=== PATIENT | male | born 1940 | race Caucasian/White ===

== ENCOUNTER 2018-03-05 00:51 | Observation (INO) | payer OTHER, MEDICARE ==
[~2018-03-05] VITALS: Ht 180.3 cm; Wt 81.6 kg
[2018-03-05] VITALS (8 sets, daily range): BP systolic 117–170; BP diastolic 54–78
[~2018-03-05 00:51] MED LIST: ALPRAZOLAM 0.0.25 M1 PO; AMITIZA8 MCG PO; AMLODIPINE BESY10 MG PO; AMOXICILLIN 50500 M1 PO; ASPIR 8181 M1 PO; ASPIRIN325 PO; CARVEDILOL25 MG PO; CHERATUSSIN DA480 ML; CRESTOR10 MG PO; DEXILANT60 MG PO; HYDRALAZINE 2525 MG PO; HYDRAZINE SULFAT1 GM MC; HYDROCHLOROTHIA25 M2 PO; IMDUR 30 MG TAB30 M1 PO; LEVEMIR SQ; LIPITOR 20 MG T20 M1 PO; MAXZIDE-25 MG1 EACH PO; NITROGLYCERIN0.4 MG SL; NOVOLOG100 UNIT/1 SUBQ; PLAVIX 75 MG TA75 M1 PO; PREDNISONE 20 M20 M1 PO; RANEXA500 MG PO; TYLENOL325 MG PO; VENTOLIN HFA 1818 GM INH; XANAX 0.25 MG0.25 MG PO; ZPAK PO
[2018-03-05 01:23] LABS: HEMATOCRIT 34.8 % (42.0-52.0); HEMOGLOBIN 11.8 gm/dL (14.0-18.0); MCH 27.2 pg (26.0-34.0); MCHC 33.8 g/dL (28.0-37.0); MCV 80.5 fL (80.0-100.0); MPV 8.1 fl. (7.2-11.1); NUCLEATED RBCS 0 /100WBC; PLATELET COUNT* 128 thou/uL (150-400); RBC 4.32 mil/uL (4.50-6.00); RDW-CV 16.1 % (10.5-14.5)
[2018-03-05 01:37] LABS: INR 1.1
[2018-03-05 01:38] LABS: ANION GAP 1 mmol/L (7-16); BUN 29 mg/dL (7-18); CALCIUM 8.2 mg/dL (8.5-10.1); CHLORIDE 101 mmol/L (98-107); CO2 34 mmol/L (21-32); CREATININE 1.9 mg/dL (0.6-1.3); GLUCOSE 117 mg/dL (70-99); POTASSIUM 4.2 mmol/L (3.5-5.1); SODIUM 136 mmol/L (136-145)
[2018-03-05 01:55] LABS: ALBUMIN 3.3 g/dL (3.4-5.0); ALKALINE PHOSPHATASE 74 U/L (46-116); LIPASE 152 U/L (73-393); NT-PRO BRAIN NAT PEPTIDE 1169 pg/mL (<300); SGOT 21 U/L (15-37); SGPT 29 U/L (30-65); TOTAL BILIRUBIN 0.7 mg/dL (<0.1-1.0); TOTAL PROTEIN 6.5 g/dL (6.4-8.2); TROPONIN-I LEVEL <0.06 ng/mL (<0.06)
[2018-03-05] MEDS ORDERED: LORATIDINE 10 M10 M1 PO (05:30)
[2018-03-05 05:39] LABS: ABSOLUTE EOSINOPHILS 0.2 thou/uL (0.0-0.7); ABSOLUTE LYMPHOCYTES 0.9 thou/uL (0.8-5.3); ABSOLUTE MONOCYTES 0.1 thou/uL (0.0-1.2); ABSOLUTE NEUTROPHILS 5.7 thou/uL (1.6-8.1); ANISOCYTOSIS 1+; PLATELET ESTIMATE DECREASED; POIKILOCYTOSIS 1+
--- NOTE | 2018-03-05 06:06 | NUR ---
PT ADMITTED TO ROOM 219 DURING THIS SHIFT; VSS, A+OX4, DENIES PAIN, FALL RISK, UP SBA, NPO FOR CARDIOLOGY CONSULT THIS MORNING. HE IS ABLE TO COMMUNICATE HIS NEEDS TO STAFF EFFECTIVELY. HE HAS DENIED THE NEED FOR PAIN MEDICATION UP TO THIS TIME. PT CONCERNED ABOUT LOW BLOOD SUGAR; HE WILL BE ACHS ACCUCHECKS BEGINNING THIS MORNING.
--- NOTE | 2018-03-05 07:30 | NUR ---
CHANGE OF SHIFT BEDSIDE REPORT GVEN PATIENT SEEN AT BEDSIDE, IN BED WATCHING TV ASSUMED PATIENT CARE
--- NOTE | 2018-03-05 10:58 | EKG ---
[place] [address] ELECTROCARDIOGRAM REPORT Name: TAMELA RAMOS Room: [address] ADM IN [facility]#: [id number] Admission: 03/05/18 Attend Phys: Bk Gamez MD Discharge: Date of : 38 Report #: [id number] THIS REPORT FOR: //name// [facility] ED Test Date: 2018-03-05 Test Time: 01:24:00 Pat Name: TAMELA RAMOS Department: Room: [facility] Gender: M Projection Technician: AP : 1940 Requested By: Uma Rodríguez Order Number: [id number] MD: Cassius Omer Measurements Intervals [place] Rate: 63 P: 73 [place]: 189 QRS: -57 QRSD: 160 T: 47 QT: 478 QTc: 490 Interpretive Statements Sinus rhythm Probable left atrial enlargement RBBB and LAFB Compared to ECG 03/30/2017 16:22:15 No significant changes Electronically Signed On 03-05-2018 10:58:04 CDT by Cassius Omer [email or web address] <ELECTRONICALLY SIGNED> By: Cassius Omer MD, [facility] 03/05/18 1058 0124 0124 Cassius Omer MD, [facility] /EPI
--- NOTE | 2018-03-05 14:11 | NUR ---
Pt is A&O. Resides at home with his son. Normally active and independent. No hx of HH. Hx of skilled at [facility]. Pt has a walker and cane at home that he can use, if needed, Pt does not currently use either. Pt's goal is to return home at wa, Pt states that he anticipates being discharged tomorrow. No needs anticipated. Following.
[2018-03-06] VITALS: BP 134/59
[2018-03-06 04:00] VITALS: BP 168/75
--- NOTE | 2018-03-06 06:15 | NUR ---
PT IS ABLE TO COMMUNICATE HIS NEEDS TO STAFF EFFECTIVELY. CURRENT PAIN MEDICATION REGIMEN HAS BEEN ADDEQUATE FOR CONTROLLING HIS PAIN UP TO THIS TIME. PT'S BLOOD SUGAR INITIALLY HIGH AT HS, BECAME LOW IN THE WATER SERVER AND THEN REBOUNDED TO A BETTER LEVEL AT THIS TIME. POSSIBLE DISCHARGE LATER TODAY.
--- NOTE | 2018-03-06 07:15 | NUR ---
CHANGE OF SHIFT BEDSIDE REPORT GIVEN PATIENT SEEN AT BEDSIDE, IN BED RESTING ASSUMED PATIENT CARE
[2018-03-06 08:27] VITALS: BP 117/76
[2018-03-06 12:28] VITALS: BP 170/63
--- NOTE | 2018-03-06 12:31 | NUR ---
DISTRIBUTION ESTIMATOR SPOKE TO THE PATIENT TO DISCUSS DISCHARGE PLANNING NEED AND HH AT D/C. PATIENT IN AGREEMENT WITH HH AND CHOSE [facility]. SPOKE TO DC WITH [facility] TO INFORM OF THE REFERRAL AND FAXED PATIENT'S FACESHEET, H&P, AND D/C ORDERS. CM WILL REMAIN AVAILABLE TO ASSIST AND FOLLOW NEEDED.
--- NOTE | 2018-03-06 14:14 | NUR ---
PATIENT DISCHARGED TO HOME WITH H/H ALL DC INSTRUCTIONS GIVEN AND ACKNOWLEDGED AND COPIES GIVEN IV AND HEART MONITOR REMOVED PERSONAL BELONGINGS RETURNED ASSISTED OUT VIA WC GOOD CONDITION TO WAITING CAR
--- NOTE | 2018-03-07 10:11 | CON ---
[facility] [address] [place] [address] CONSULTATION Name: RICHARDTAMELA Room: [address] [place]#: [id number] Admission: 03/05/18 Attend Phys: Bk Gamez MD Discharge: 03/06/18 Date of : 38 Report #: [id number] THIS REPORT FOR: //name// CC: Bk Trent MD [facility] physician/PCP DATE OF SERVICE: 03/05/2018 TYPE OF REPORT: Cardiology consultation. PRIMARY CARE PHYSICIAN: Daljit Trent M.D. HISTORY OF THE PRESENT ILLNESS: The patient is a 77-year-old single white male who I was asked to see in the hospital today after he had a syncopal spell. The patient has an extensive past medical history. He had coronary artery bypass surgery with 5 grafts back in 1996 at [facility]. He has had multiple stents since that time. I actually performed a cardiac catheterization in September of 2016 that showed ejection fraction of 55%. There is a patent MORENO graft to the LAD. There is a patent vein graft to the distal right coronary artery that had a proximal stent as well as a stent at the distal anastomosis. There appeared to have no significant restenosis. No additional stents were required. I last saw him in the Cardiology Clinic a year ago. He actually saw my nurse practitioner in September when he was doing well. He stays active, going for walks. Denies any chest pain or shortness of breath. He does note occasionally after taking his medications he feels lightheaded. However, he was feeling well until last night. He felt lightheaded when he stood up. He went to the kitchen and sat down. He then felt nausea. The room was spinning and he fell and struck his nose. He was brought here to the Emergency Room at [place] and admitted. He denied racing of the heart. Denies recent vomiting or bleeding. PAST MEDICAL HISTORY: Significant for appendectomy and cataract extraction. He has a history of diabetes, hypertension and hyperlipidemia. He has a history of a carotid stenosis of 50%-69% stenosis of the right a year ago. He has a history of a small abdominal aortic aneurysm measuring 3.8 cm. MEDICATIONS: Consist of amlodipine, which was decreased to 5 mg a day because of dizzy spells; aspirin; Lipitor; carvedilol; Plavix; hydralazine; insulin; Ranexa and Dyazide. ALLERGIES: No known drug allergies. FAMILY HISTORY: His father had a heart attack. SOCIAL HISTORY: He is . He lives here in [place] [address] CONSULTATION Name: TAMELA RAMOS Room: [address] [place]#: [id number] Admission: 03/05/18 Attend Phys: Bk Gamez MD Discharge: 03/06/18 Date of : 38 Report #: [id number]. Quit smoking years ago. No alcohol abuse. REVIEW OF SYSTEMS: He has had no history of stroke, asthma, peptic ulcer disease, liver disease or kidney disease. He had a skin cancer removed in the past. PHYSICAL EXAMINATION: GENERAL: Revealed an elderly male, lying in bed. He appeared in no distress. VITAL SIGNS: Blood pressure 120/60, pulse 70 and he is afebrile. HEENT: He is anicteric. Conjunctivae pink. Mucous members moist. NECK: Veins nondistended. Bilateral carotid bruits were heard. CHEST: Clear to auscultation. CARDIOVASCULAR: Regular rate and rhythm, grade 2 systolic ejection murmur. ABDOMEN: Soft. EXTREMITIES: Had no edema. Posterior tibial pulse 2+ in the right, cannot palpate a left. SKIN: Cool and dry. NEUROLOGICAL: Nonfocal. RADIOLOGICAL DATA: His ECG showed a sinus rhythm with left anterior fascicular block and right bundle-branch block. His previous echocardiogram in 2016 showed mild aortic stenosis. Workup in the Emergency Room last night, he had CT scan of the head without contrast that showed atrophy. Chest x-ray showed no acute abnormality. LABORATORY DATA: His lab work: Sodium 136, potassium is 4.2 and creatinine is 1.9. Liver function studies were normal. His white blood cell count 7.0 and hematocrit 34.8. IMPRESSION AND RECOMMENDATIONS: 1. Syncope. Suspect vasovagal. If recurrent, I would consider an event recorder. 2. Diabetes. 3. Small abdominal aortic aneurysm. 4. Moderate carotid stenosis. 5. Previous stents. No recent angina. 6. Hypertension. I would recommend decreasing the dose because of lightheaded spells. 7. Hyperlipidemia. 8. Mild aortic stenosis. 9. Previous tobacco abuse. <ELECTRONICALLY SIGNED> By: Cassius Omer MD, FACC 03/07/18 1011 0935 1033Djamar Omer MD, FACC /nt
== END 2018-03-06 14:04 | disposition home health service (06) ==
LOC: M.ERS 00:51 → M.TBA-ER 03:07 → M.2W 03:07
PROVIDERS: Emergency Medicine; ADMIT Internal Medicine
DX: S02.2XXA Fracture of nasal bones, initial encounter for closed fracture (principal); R11.2 Nausea with vomiting, unspecified; R55 Syncope and collapse; I95.2 Hypotension due to drugs; E11.9 Type 2 diabetes mellitus without complications; I10 Essential (primary) hypertension; K21.9 Gastro-esophageal reflux disease without esophagitis; E78.5 Hyperlipidemia, unspecified; I65.29 Occlusion and stenosis of unspecified carotid artery; I71.4 Abdominal aortic aneurysm, without rupture; I35.0 Nonrheumatic aortic (valve) stenosis; W18.30XA Fall on same level, unspecified, initial encounter; Y93.89 Activity, other specified; Y92.000 Kitchen of unspecified non-institutional (private) residence as the place of occurrence of the external cause; Y99.8 Other external cause status; Z98.890 Other specified postprocedural states; Z79.4 Long term (current) use of insulin; Z95.5 Presence of coronary angioplasty implant and graft; Z90.49 Acquired absence of other specified parts of digestive tract; Z87.891 Personal history of nicotine dependence; Z72.89 Other problems related to lifestyle

== ENCOUNTER → 2018-08-15 | Outpatient (CLI) | payer OTHER, MEDICARE ==
[~2018-08-15] MED LIST changes: +ASPIR 8181 MG PO; +K-DUR10 MEQ PO; +LASIX 20 MG TAB20 MG PO; +LORATIDINE 10 M10 M1 PO
== END ==
LOC: M.RAD 11:09
DX: J90 Pleural effusion, not elsewhere classified (principal); R91.8 Other nonspecific abnormal finding of lung field

== ENCOUNTER 2018-08-16 13:14 | Inpatient (IN) | payer MEDICARE, OTHER ==
[~2018-08-16] VITALS: Ht 177.8 cm; Wt 76.2 kg
[~2018-08-16 13:14] MED LIST changes: -ASPIR 8181 MG PO; -CARVEDILOL25 MG PO; -K-DUR10 MEQ PO; -LASIX 20 MG TAB20 MG PO
[2018-08-16 13:19] VITALS: BP 134/81
[2018-08-16] MEDS ORDERED: LASIX 20 MG TAB20 MG PO ×2 (13:23)
[2018-08-16 13:47] LABS: ABSOLUTE EOSINOPHILS 0.1 thou/uL (0.0-0.7); ABSOLUTE LYMPHOCYTES 0.3 thou/uL (0.8-5.3); ABSOLUTE MONOCYTES 0.3 thou/uL (0.0-1.2); ABSOLUTE NEUTROPHILS 2.1 thou/uL (1.6-8.1); BASOPHILS 0.8 %; EOSINOPHILS 3.1 %; HEMATOCRIT 32.8 % (42.0-52.0); HEMOGLOBIN 10.8 gm/dL (14.0-18.0); MCH 25.3 pg (26.0-34.0); MCV 76.7 fL (80.0-100.0); MONOCYTES 10.6 %; MPV 8.9 fl. (7.2-11.1); NUCLEATED RBCS 0 /100WBC; PLATELET COUNT* 114 thou/uL (150-400); POLYS 73.5 %; RBC 4.27 mil/uL (4.50-6.00); RDW-CV 18.6 % (10.5-14.5); WBC 2.8 thou/uL (4.0-11.0)
[2018-08-16 14:00] LABS: APTT 29.7 Seconds (25.0-31.3); INR 1.1; PROTIME 11.4 Seconds (9.20-11.50)
[2018-08-16 14:07] LABS: CALCIUM 8.7 mg/dL (8.5-10.1); CREATININE 1.8 mg/dL (0.6-1.3); POTASSIUM 4.4 mmol/L (3.5-5.1); TROPONIN-I LEVEL 0.12 ng/mL (<0.06)
[2018-08-16 14:10] LABS: ALBUMIN 3.3 g/dL (3.4-5.0); TOTAL BILIRUBIN 0.9 mg/dL (<0.1-1.0); TOTAL PROTEIN 6.7 g/dL (6.4-8.2)
--- NOTE | 2018-08-16 15:01 | EKG ---
[place] [address] ELECTROCARDIOGRAM REPORT Name: TAMELA RAMOS Room: [place] [address] ADM IN [facility].#: [id number] Admission: 08/16/18 Attend Phys: Samy Roy Discharge: Date of : 38 Report #: [id number] THIS REPORT FOR: //name// [facility] ED Test Date: 2018-08-16 Test Time: 13:16:07 Pat Name: TAMELA RAMOS Department: Room: [facility] Gender: Bookmobile Clerk: Wilberto WYATT : 1940 Requested By: Rios Livingston Order Number: [id number] MD: Kalen Becerra Measurements Intervals [place] Rate: 79 P: 67 SD: 201 QRS: -63 QRSD: 157 T: 85 QT: 431 QTc: 495 Interpretive Statements Sinus rhythm 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
[2018-08-16 15:46] LABS: CALCIUM 8.7 mg/dL (8.5-10.1); CREATININE 1.7 mg/dL (0.6-1.3); POTASSIUM 4.4 mmol/L (3.5-5.1); TROPONIN-I LEVEL 0.2 ng/mL (<0.06)
[2018-08-16 18:55] VITALS: BP 134/48
[2018-08-16 20:00] VITALS: BP 146/87
--- NOTE | 2018-08-16 20:00 | NUR ---
RECEIVED REPORT AND ADMITTED FROM ER AT 1940. PT SOA, O2 ON AT 2L/NC, HOB ELEVATED. STATES CHEST PRESSURE STILL THERE. [employer] SERVICES COORDINATOR APPLIED SHOWING SR WITH 1ST AVB AND BBB. PT BELCHING AND STATES THAT IS HELPING. WILL GIVE HS MEDS WHICH INCLUDE CARDIAC MEDS. FAMILY AT BEDSIDE. SEE ADMISSION ASSESSMENT AND HX. WILL CONT TO MONITOR AND ASSIST NEEDED.
[2018-08-17] VITALS (20 sets, daily range): BP systolic 94–168; BP diastolic 50–96
[2018-08-17 02:42] LABS: CALCIUM 8.5 mg/dL (8.5-10.1); CREATININE 1.8 mg/dL (0.6-1.3)
[2018-08-17 02:43] LABS: POTASSIUM 3.4 mmol/L (3.5-5.1)
[2018-08-17 02:44] LABS: TROPONIN-I LEVEL 1.15 ng/mL (<0.06)
--- NOTE | 2018-08-17 06:16 | NUR ---
SLEPT WELL TONIGHT. CHEST PAIN RESOLVED. TROP ELEVATED. NPO FOR POSS PROCEDURE. TELEMETRY CONT TO SHOW SR WITH 1ST AVB/BBB/PVC. O2 ON AT 2L/NC. NO INCREASED SOA, HOB ELEVATED. LASIX GIVEN EARLIER, VOIDING WITHOUT DIFFICULTY. HS GOALS OF REST AND SAFETY ACHIEVED. HOURLY ROUNDING OBSERVED.
--- NOTE | 2018-08-17 09:39 | NUR ---
ASSUMED CARE OF PT THIS AM AROUND 0715- WARP CLAMPER IN PLACE ORDERED, TRACING SR WITH BBB- UPON ASSESSMENT PT NOTED TO BE RESTING IN BED- PT A&O X4- CONTINENT OF BOWEL AND BLADDER- SBA WITH TRANSFERS FOR SAFETY- DIMINISHED LUNGS SOUNDS NOTED, RESP EVEN AND UN-LABORED- VSS, O2 SAT 97% ON RA- ABD AOFT/ROUND/NON-TENDER, BS X 4 QUADS- PT REPORTS TO HAVE HAD BM THIS AM- PT CURRENLTY NPO FOR PLANNED CATH THIS SHIFT PER CARDIOLOGY- IV NOTED TO LEFT FA INTACT, HEPARIN INFUSSING PRESCRIBED MORNING APPT NOTED AT 70.9 WITH NO CHANGE NEEDED NEXT REDRAW IN AM- 2ND IV NOTED TO RIGHT AC INTACT, IVF INFUSSING PRESCIBED, AND 3RD IV NOTED TO LEFT HAND INTACT AND SL- BS MONITORED ORDERED, INSULIN HELD THIS AM R/T NPO STATUS- PT CURRNELTY UP TO BED SIDE CHAIR- CALL LIGHT AND PERSONAL BELONGINGS WITH IN REACH- PT DENIES ANY C/O PAIN/DISCOMFORT AT THIS TIME- HOURLY ROUNDS IN PLACE R/T SAFETY/NEEDS- ALL NEEDS MET AT THIS TIME-WCTM
--- NOTE | 2018-08-17 14:10 | NUR ---
Pt is A&O. Resides at home with his son. Independent. Pt has a walker and cane at home that he can use for mobility. Hx of [facility] HH. H[facility] of [facility] at [facility]. Pt scheduled to have a heart cath today. Goal is home at tx. If Pt wants HH at tx, fax HH orders, H&P and facesheet to [facility] at [phone]
--- NOTE | 2018-08-17 17:09 | NUR ---
PT OFF UNIT FROM AROUND 1515 TILL 1645 FOR CATH- REPORT RECIECIED PER LIOR RN THAT PT RECIEVIED STENT TO RIGHT VEIN GRAFT VIA RIGHT GROIN ACCESS- PT PLACED ON CARDIAC CATH, TRACING SR/BBB UPON RETURNING- BED REST WITH RLE IMMOBILIZATION IN PLACE-VS PER PROTOCOL IN PLACE WITH FREQUENT GROIN CHECKS- RIGHT GROIN WITH TRANSPARENT/GAUZE DRESSING IN PLACE, C/D/I WITH NO HEMATOMA NOTED-HEPARIN NOTED TO BE D/C'D POST CATH- IVF TO RIGHT AC INTACT AND INFUSSING PRESCIBED- PT DENIES ANY C/O PAIN- SENSATION TO RLE INTACT PER PT- CALL LIGHT AND PERSONAL BELONGINGS WITH IN REACH- PT MAKES NEEDS KNOWN- ALL NEEDS MET AT THIS TIME-WCTM
--- NOTE | 2018-08-17 20:00 | NUR ---
RECEIVED REPORT AND ASSUMED CARE OF PT, ASSESSMENT COMPLETED. PT REMAINS FLAT WITH RT LEG IMMOBILIZATION. RT GROIN DRSG DRY AND INTACT, NO HEMATOMA, DRAINAGE OR ECCHYMOSIS. PT DOES C/O NOT FEELING LIKE HE CAN TAKE A DEEP BREATH, O2 ON AT 2L/NC. TELEMETRY ON SHOWING SR WITH 1ST AVB AND BBB. SON AT BEDSIDE. WILL CONT TO MONITOR AND ASSIST NEEDED.
[2018-08-18 00:15] VITALS: BP 119/56
[2018-08-18 04:00] VITALS: BP 125/62
[2018-08-18 05:13] LABS: HEMATOCRIT 29.1 % (42.0-52.0); HEMOGLOBIN 9.6 gm/dL (14.0-18.0); MCH 25.2 pg (26.0-34.0); MCHC 33.1 g/dL (28.0-37.0); MCV 76.2 fL (80.0-100.0); MPV 9.1 fl. (7.2-11.1); RBC 3.81 mil/uL (4.50-6.00); RDW-CV 18.1 % (10.5-14.5); WBC 3.5 thou/uL (4.0-11.0)
[2018-08-18 05:37] LABS: ALBUMIN 2.8 g/dL (3.4-5.0); ALKALINE PHOSPHATASE 60 U/L (46-116); ANION GAP 4 mmol/L (7-16); BUN 28 mg/dL (7-18); CALCIUM 8.4 mg/dL (8.5-10.1); CHLORIDE 101 mmol/L (98-107); CHOLESTEROL 111 mg/dL (<200); CO2 30 mmol/L (21-32); CREATININE 1.7 mg/dL (0.6-1.3); GLUCOSE 155 mg/dL (70-99); HDL CHOLESTEROL 32 mg/dL (>40); LDL CHOLESTEROL 62 mg/dL (<100); POTASSIUM 3.7 mmol/L (3.5-5.1); SGOT 28 U/L (15-37); SGPT 37 U/L (30-65); SODIUM 135 mmol/L (136-145); TC:HDL 3.5 Ratio (Not establshd); TOTAL BILIRUBIN 1.1 mg/dL (<0.1-1.0); TRIGLYCERIDE 86 mg/dL (<150); VLDL 17 mg/dL (<40)
[2018-08-18 05:39] LABS: SERUM ASSESSMENT CLEAR
[2018-08-18 05:40] LABS: TROPONIN-I LEVEL 1.59 ng/mL (<0.06)
--- NOTE | 2018-08-18 06:49 | NUR ---
SLEPT WELL TONIGHT. RT GROIN REMAINS WITHOUT HEMATOMA, DRAINAGE OR ECCHYMOSIS. BREATHING IMPROVED, O2 REMOVED, O2 SAT REMAINS AT 99%. DENIES CP. ASSESSMENT UNCHANGED. TELEMETRY CONT TO SHOW SR WITH 1ST AVB AND BBB. HS GOALS OF REST AND SAFETY ACHIEVED. HOURLY ROUNDING OBSERVED.
[2018-08-18 07:53] VITALS: BP 132/62
--- NOTE | 2018-08-18 09:35 | NUR ---
ASSUMED CARE OF PT THIS AM AROUND 0715- JOURNEYMAN LINEMAN IN PLACE ORDERED, TRACING SR WITH 1ST DEGREE/BBB- UPON ASSESSMENT PT NOTED TO BE UP IN BED SIDE CHAIR- PT A&O X4- CONTINENT OF BOWEL AND BLADDER- SBA WITH TRANSFERS FOR SAFETY- DIMINISHED LUNG SOUNDS, RESP EVEN AND UN-LABORED- VSS, O2 SAT 98% ON RA- PT REPORTS OCCASSIONAL SOA WITH REPORTS OF ANXIETY- ABD SOFT/FLAT/NON-TENDER, BS X4 QUADS- PT REPORTS TO HAVE HAD BM THIS AM-GOOD PO INTAKE NOTED THIS AM WITH BREAKFAST, BS MONITORED WITH SSI AND SCHEDULED INSULIN PRESCIBED- IV NOTED TO RIGHT AC, LEFT FA AND LEFT WRIST INTACT AND SL- RIGHT GROIN SIGHT WITH NO HEMATOMA, DRESSING C/D/I- PT DENIES ANY C/O PAIN/DISCOMFORT AT THIS TIME- CALL LIGHT AND PERSONAL BELONGINGS WITH N REACH- HOURLY ROUNDS IN PLACE R/T SAFETY/NEEDS- ALL NEEDS MET AT THIS TIME-WCTM
[2018-08-18 10:19] VITALS: BP 144/96
[2018-08-18] MEDS ORDERED: ASPIR 8181 MG PO ×2 (10:53)
--- NOTE | 2018-08-18 11:19 | NUR ---
ORDERS RECIEVIED FOR OKAY TO D/C TO HOME PER AND CARDIOLOGY THIS SHIFT- PLAVIX TO RESTART AT HOME WITH 300MG LOADING DOSE GIVEN ORDERED PER CARDIOLOGY PRIOR TO D/C- IV TO RIGHT AC, LEFT FA, AND LEFT WRIST D/C PRIOR TO D/C ALONG WITH FORESTRY INSTRUCTOR- D/C TEACHING/EDUCATION/NEEDED FOLLOW UPS COMMUNICATED TO PT WITH VERBAL UNDERSTANDING RECIEVIED PER PT PRIOR TO D/C- ALL QUESTIONS AND CONCERNS ADDRESSED PRIOR TO D/C- WRITTEN EDUCATION GIVEN TO PT AND SON PRIOR TO D/C- BELONGINGS PACKED AND ACCOUNTED FOR PER PT SON AND TAKEN TO CAR PRIOR TO D/C- PT ESCORTED PER TECH VIA W/C TO SON VEHICLE AT 1122- NO PROBLEMS TO NOTE AT TIME OF D/C
--- NOTE | 2018-08-18 13:07 | CARD ---
[address] [address] CARDIAC CATH REPORT Name: TAMELA RAMOS Room: [address] IN [facility]#: [id number] Admission: 08/16/18 Attend Phys: Samy Roy Discharge: 08/18/18 Date of : 38 Report #: [id number] THIS REPORT FOR: //name// APPROVED REPORT Study performed: 08/17/2018 14:13:34 Patient Details Patient Status: In-Patient Room #: 205 The patient is a 78 year-old male Event Personnel Annemarie Castle RN Boat Rental Clerk, Brian Herbert Gear Tester, Mariah Rosa Monitor, Marv Kelly (R) Scrub Procedures Performed Art Access - R femoral artery* , Selective Right and Left Coronary AngiographyLeft Heart Cath w/or w/o Coronaries [id number] [facility] TOÑA Revasc Graft Single RCA C9604 SVGREVSING , MORENO Angiogram; left heart catheterization selective coronary arteriography and percutaneous coronary intervention to the distal vein graft the right coronary artery, SVG Angiogram Indication Unstable angina Risk Factors Hypercholesterolemia, Hypertension Previous Procedures/Diagnoses Previous CABGPrevious PCI Admission/Lab Medications/Medications given during procedure Aspirin, Platelet Aff. Inhib., Angiomax bolus and infusion Procedure Narrative The patient was brought electively to the Cardiac Catheterization Laboratory and was prepped and draped in a sterile manner. The right femoral was infiltrated with 2% Lidocaine subcutaneous anesthesia. A [place] 6 FR sheath was inserted into the right femoral artery. Coronary angiography was performed using coronary diagnostic catheters. The right coronary system was accessed and visualized with a 6fr JR 4 catheter. The left coronary system was accessed and visualized with a 6fr JL 4 catheter. The left ventricle was accessed and visualized with a 6fr Pigtail catheter. Left ventricular/[place] [address] CARDIAC CATH REPORT Name: TAMELA RAMOS Room: [address]#: [id number] Admission: 08/16/18 Attend Phys: Samy Roy Discharge: 08/18/18 Date of : 38 Report #: [id number] Valve gradient assessed via catheter pullback. Pre-demployment femoral angiogram was performed . Closure device was deployed with a 6 Fr Angioseal STS 6Fr. The patient tolerated the procedure well and there were no complications associated with the procedure. There was no hematoma. Intraoperative Conscious Sedation Sedation start time: 15:30 Case end Time: 16:25 Fentanyl 25 mcg Versed 1 mg Fluoro Time: 16.5 minutes Dose: DAP 430285 cGycm2 1994.11 mGy Contrast Type and Amount: Visipaque 350 ml [place] Artery Percent Stenosis #1 widely patent MORENO graft to the LAD with good filling of the distal system and collateralization to the diagonal network #2 patent saphenous vein graft to the distal dominant right coronary artery with 40% proximal graft narrowing and 80% distal graft narrowing with local thrombus or atheromatous debris within the graft Diagnostic Cath Left Main 0% narrowing LAD 100% proximal occlusion Circumflex 100% proximal occlusion Right Coronary 100% proximal occlusion Left Ventriculography Left Ventriculography was not performed. Hemodynamics The aortic pressure is 154/64 mmHg with a mean of mmHg. The left ventricular pressure is 166/10 mmHg with a mean of mmHg. The left ventricular end diastolic pressure is 34 mmHg. There was no gradient across the aortic valve upon pullback. Pullback from the left ventricle to the aorta revealed no gradient across the aortic valve. PCI Technique Lesion Anticoagulation was achieved with Angiomax. Patient was preloaded with Angiomax IV 12 mg per kg. Percutaneous coronary intervention was performed on the distal right coronary artery graft. The lesion stenosis prior to intervention was 80% with UYEN 3 flow. A 6Fr AR 1 [place] [address] CARDIAC CATH REPORT Name: RICHARDTAMELA Room: [address]#: [id number] Admission: 08/16/18 Attend Phys: Samy Roy Discharge: 08/18/18 Date of : 38 Report #: [id number] Guide Catheter was used to engage the ostium. A IG: [place] 190cm Interventional Guidewire was used to cross the lesion. BALLOON DILATION A Trek balloon 3.5 x 15 Was inserted for measuring lesion length STENT DEPLOYMENT A drug-eluting stent Xience Keily 2.20I71yd was inserted and inflated up to 15.00atm for 16seconds. Additional Inflation: 18.00atm for 9seconds. Additional Inflation: 20.00atm for 13seconds. POST STENT DEPLOYMENT BALLOON DILATION A Balloon catheter NC Trek RX 3.25 X 12 was inserted and inflated up to 16.00atm for 9seconds. Additional Inflation: 18.00atm for 10seconds. Additional Inflation: 12.00atm for 6seconds. Final angiography reveals 10 % stenosis with UYEN 3 flow. Conclusion #1 severe multivessel coronary artery disease characterized by the following: A 100% proximal LAD occlusion B 100% proximal circumflex occlusion C 100% proximal right coronary occlusion #2 graft study characterized by the following: A widely patent MORENO graft to the LAD with good filling distally and collateralization to the diagonal network B patent saphenous vein graft to the distal dominant right coronary artery with 40% proximal graft narrowing and 80% narrowing of the distal portion of the graft with atheromatous debris or thrombus noted in the distal portion of the graft #3 mild systemic systolic hypertension with significant elevation of left ventricular end-diastolic pressure at rest 4 successful percutaneous coronary intervention with deployment of a drug-eluting stent at site of 80% stenosis of the distal portion of the vein graft to the right coronary artery with 10% [place] [address] CARDIAC CATH REPORT Name: TAMELA RAMOS Room: [address]#: [id number] Admission: 08/16/18 Attend Phys: Samy Roy Discharge: 08/18/18 Date of : 38 Report #: [id number] narrowing and UYEN-3 flow the distal circulation Recommendations Daily ASA with Plavix for at least one year Aggressive Medical Therapy Medications Administered Aspirin (any) Diagnostic Cath Approved by: Brian Herbert MD Date/Time: 08/18/2018 13:05:23 <ELECTRONICALLY SIGNED> By: Brian Herbert MD, FACC 08/18/18 1307 1307 1307Brian Herbert MD, FACC /INF
--- NOTE | 2018-08-19 15:00 | EKG ---
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: [employer] : 1940 Requested By: Brian Herbert Order Number: [id number] Devan MD: Gerardo Reddy Measurements Intervals [place] Rate: 84 P: 90 MA: 213 QRS: -79 QRSD: 156 T: 78 QT: 439 QTc: 520 Interpretive Statements Sinus rhythm Borderline prolonged MA interval RBBB and LAFB Compared to ECG 08/16/2018 13:16:07 No significant changes Electronically Signed On 08-19-2018 15:00:43 CDT by Gerardo Reddy [email or web address] <ELECTRONICALLY SIGNED> By: Gerardo Reddy MD, FACC 08/19/18 1500 1700 170 Gerardo Reddy MD, FAC /EPI
--- NOTE | 2018-08-19 15:03 | EKG ---
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: [employer] : 1940 Requested By: Brian Herbert Order Number: [id number] Devan MD: Gerardo Reddy Measurements Intervals [place] Rate: 73 P: 67 [place]: 203 QRS: -77 QRSD: 156 T: 80 QT: 469 QTc: 517 Interpretive Statements Sinus rhythm Probable left atrial enlargement RBBB and LAFB Compared to ECG 08/16/2018 13:16:07 No significant changes Electronically Signed On 08-19-2018 15:03:13 CDT by Gerardo Reddy [email or web address] <ELECTRONICALLY SIGNED> By: Gerardo Reddy MD, FAC 08/19/18 1503 0506 0506 Gerardo Reddy MD, [facility] /EPI
== END 2018-08-18 11:24 | disposition home or self-care (01) | DRG 246 ==
LOC: M.ERS 13:14 → M.TBA-ER 14:08 → M.2W 14:08
PROVIDERS: Family Medicine; Internal Medicine; ADMIT Internal Medicine
DX: I21.4 Non-ST elevation (NSTEMI) myocardial infarction (principal); I50.43 Acute on chronic combined systolic (congestive) and diastolic (congestive) heart failure; T82.868A Thrombosis due to vascular prosthetic devices, implants and grafts, initial encounter; J98.11 Atelectasis; N17.9 Acute kidney failure, unspecified; E87.1 Hypo-osmolality and hyponatremia; I13.0 Hypertensive heart and chronic kidney disease with heart failure and stage 1 through stage 4 chronic kidney disease, or unspecified chronic kidney disease; K21.9 Gastro-esophageal reflux disease without esophagitis; Y84.0 Cardiac catheterization as the cause of abnormal reaction of the patient, or of later complication, without mention of misadventure at the time of the procedure; E11.22 Type 2 diabetes mellitus with diabetic chronic kidney disease; N18.9 Chronic kidney disease, unspecified; I65.29 Occlusion and stenosis of unspecified carotid artery; I71.4 Abdominal aortic aneurysm, without rupture; E87.6 Hypokalemia; I25.10 Atherosclerotic heart disease of native coronary artery without angina pectoris; Z95.1 Presence of aortocoronary bypass graft; Z95.5 Presence of coronary angioplasty implant and graft; Z90.49 Acquired absence of other specified parts of digestive tract; Z98.52 Vasectomy status; Z98.41 Cataract extraction status, right eye; Z98.42 Cataract extraction status, left eye; Z79.899 Other long term (current) drug therapy; Z79.4 Long term (current) use of insulin; Z88.8 Allergy status to other drugs, medicaments and biological substances; Z87.891 Personal history of nicotine dependence; Y92.89 Other specified places as the place of occurrence of the external cause

== ENCOUNTER 2018-08-27 16:27 | Inpatient (IN) | payer MEDICARE, OTHER ==
[~2018-08-27] VITALS: Ht 177.8 cm; Wt 89.8 kg
--- NOTE | ~2018-08-27 | CON ---
[address] [address] CONSULTATION Name: TAMELA RAMOS Room: [address] IN M.R.#: [id number] Admission: 08/27/18 Attend Phys: Meliton Ryan Discharge: Date of : 38 Report #: [id number] THIS REPORT FOR: //name// CC: Daljit Casiano DATE OF SERVICE: 09/09/2018 TYPE OF REPORT: Nephrology consultation. CONSULTING PHYSICIAN: lE Hall M.D. REASON FOR NEPHROLOGY CONSULTATION: Acute kidney injury on top of chronic kidney disease, stage 3. REASON FOR ADMISSION: Acute respiratory failure. HISTORY OF PRESENT ILLNESS: The patient is a 78-year-old male with past medical history of non-STEMI and a cardiac catheterization and a stent placement on 08/16/2018, also history of chronic kidney disease stage 3, diabetes type 2, hypertension, chronic diastolic congestive heart failure with evidence of pulmonary hypertension, came in with increasing shortness of breath and left-sided chest pain and shoulder pain and this was on 27 of August. Cardiology did not feel this was an acute non-STEMI. He had a repeat echocardiogram, which showed ejection fraction 50%-55% with RVSP of 45 mmHg with evidence of moderate diastolic dysfunction. He was diuresed with Lasix. Two days ago, he had marked drop in his blood pressure to 98/42 and his creatinine went up from 2.2 to 2.6. His creatinine was 2.6 yesterday. He was given one time normal saline for 500 mL and his Lasix was held and his creatinine has come down to 2.5 today. He is currently feeling okay. His leg edema is stable. His baseline creatinine seems to be 1.9-2. I do not think he follows with anybody in regards to that. ALLERGIES: To LISINOPRIL. REVIEW OF SYSTEMS: As mentioned in history of present illness, otherwise negative. PAST MEDICAL HISTORY AND SURGICAL HISTORY: Included a cardiac stent in the past, hypertension, GERD, esophageal stretching several times, appendectomy, tonsillectomy, vasectomy, bilateral cataract surgery, basal cell carcinoma, CABG and chronic diastolic congestive heart failure, also chronic kidney disease stage 3, baseline creatinine 1.9-2 and has history of diabetes. HOME MEDICATIONS: Include potassium chloride, carvedilol, isosorbide, nitroglycerin, clopidogrel, insulin detemir, Dexilant, ranolazine, [place] [address] CONSULTATION Name: TAMELA RAMOS Jose Room: [address]#: [id number] Admission: 08/27/18 Attend Phys: Meliton Ryan Discharge: Date of : 39 Report #: [id number] aspart, acetaminophen, atorvastatin, alprazolam, lubiprostone, loratadine, furosemide and aspirin. FAMILY HISTORY: Noncontributory due to his advanced age. SOCIAL HISTORY: He is a former smoker. He uses alcohol weekly. He does not use recreational drugs. PHYSICAL EXAMINATION: VITAL SIGNS: Blood pressure is 116/57, pulse is 62, temperature 36.3 and respiratory rate is 16 and his pulse ox is 100% on 1 liter of oxygen by nasal cannula. GENERAL: He is awake, alert and oriented x 3. HEAD, EYES, EARS, NOSE AND THROAT: Mucous membranes are moist. NECK: No JVD. CHEST: Bilateral diminished breath sounds. No crackles heard. CARDIOVASCULAR SYSTEM: S1 and S2 normal and he does have 1/6 ejection systolic murmur in the aortic area. ABDOMEN: Soft, nondistended and nontender. Bowel sounds are present. EXTREMITIES: He has 2+ lower extremity edema and chronic venous stasis changes bilateral lower extremities. NEUROLOGICAL FUNCTION: Neurological function seems to be intact. PSYCHIATRIC: Mood and affect seems to be normal. LABORATORY DATA: Hemoglobin is 8.8. His BUN is 86; creatinine is 2.5, which is better from 2.6 yesterday; sodium is 131 and potassium is 4.8. Other labs were reviewed. IMAGING DATA: Chest x-ray, abdominal ultrasound and other imaging studies were reviewed. ASSESSMENT: 1. Acute kidney injury on chronic kidney disease stage 3, baseline creatinine is 1.9-2. Creatinine peaked at 2.6 on 09/08/2018. Acute kidney injury in the setting of hypotension and diuretic use. His renal ultrasound did not show any acute abnormalities on 06 of September that was before his creatinine started rising but since creatinine is already getting better, no need to repeat an ultrasound now and the UA was from yesterday and it did not show any protein or blood in it on dipstick. 2. Acute respiratory failure with hypoxia, has improved. 3. History of chronic obstructive pulmonary disease with bronchitis, not in acute exacerbation. 4. Chronic diastolic congestive heart failure with evidence of pulmonary hypertension. Ejection fraction 50%-55%, currently looking more or less compensated. 5. History of abdominal aortic aneurysm, Vascular Surgery evaluated him this [address] [address] CONSULTATION Name: TAMELA RAMOS Room: [address] IN [place]#: [id number] Admission: 08/27/18 Attend Phys: Meliton Ryan Discharge: Date of : 38 Report #: [id number] admission, he follows with Dr. Omer. 6. History of hypertension. Blood pressure had dropped 2 days ago, now more stable. 7. Diabetes type 2. 8. Iron-deficiency anemia. 9. 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 Gastrointestinal to evaluate him. PLAN: 1. Creatinine so far is improving, 2.5 today. Hold off on Lasix today and also will hold off on giving IV fluids. If creatinine continues to get better in the next 1-2 days, Lasix will have to be restarted because his chest x-ray does show some evidence of congestion. 2. Magnesium is 3.3. Avoid magnesium containing compounds. 3. Try to keep his mean arterial pressure on 70. Thank you for this consultation. We will continue to follow along with you. Discussed with the patient as well as the patient's nurse. By: 0828 0038Aart Chamorro MD /nt
--- NOTE | ~2018-08-27 | CON ---
[address] [address] CONSULTATION Name: TAMELA RAMOS Room: [address] IN .R.#: [id number] Admission: 08/27/18 Attend Phys: Meliton Ryan Discharge: Date of : 39 Report #: [id number] THIS REPORT FOR: //name// CC: Daljit Casiano This is a pleasant 78-year-old gentleman with past medical history of coronary artery disease, NSTEMI and cardiac stent placement on 08/16/2018. The patient presented to the hospital on 08/27/2018 for progressively worsening shortness of breath since his discharge. The patient reports the shortness of breath is present at rest when he lies down completely flat, it is alleviated by sitting up. The shortness of breath is also worse on exertion and is relieved by rest. The GI service has been consulted for evaluation of possible cirrhosis noted on CT scan. The patient denies prior episodes of jaundice, confusion, tremors, insomnia, hematemesis or hematochezia. PAST MEDICAL HISTORY: The patient has history of coronary artery bypass grafting, hypertension, type 2 diabetes, CHF, aortic abdominal aneurysm and stage 3 CKD. PAST SURGICAL HISTORY: The patient reports remote history of appendectomy at the age of 4. The patient also reports a history of tonsillectomy, vasectomy, bilateral cataract surgery and coronary artery bypass grafting in 1996. SOCIAL HISTORY: The patient reports quitting smoking about a year back, takes alcohol about once a week and denies recreational drug use. FAMILY HISTORY: There is no family history of cirrhosis or other liver conditions. REVIEW OF SYSTEMS: Comprehensive 10-point review of systems is negative except for what was mentioned in HPI. PHYSICAL EXAMINATION: VITAL SIGNS: Temperature 36.5, pulse rate 66, and blood pressure 122/46. GENERAL: The patient is alert, awake, oriented x 3. HEENT: Pupils are equal, round, reactive to light and accommodation. There is no scleral icterus. Mucous membranes are moist. There is no congestion. LUNGS: Clear to auscultation bilaterally. CARDIOVASCULAR: Rate and rhythm regular. S1, S2 present. ABDOMEN: Soft. There is no distention, guarding or rigidity. There is no fluid thrill present. SKIN: Warm and dry. There are no spider angiomata and no asterixis noted. LABORATORY DATA: Hemoglobin 8.8, hematocrit 26.6, platelet count 84, WBC count 3.5. INR 1.2. Sodium , potassium 3.8, chloride 97, bicarb 32, BUN 86, creatinine 2.5, total bilirubin 0.8, iron saturation 12, TIBC [address] [place] [address] CONSULTATION Name: TAMELA RAMOS Room: [address] IN [facility]#: [id number] Admission: 08/27/18 Attend Phys: Meliton Ryan Discharge: Date of : 39 Report #: [id number] IMAGING DATA: Abdominal ultrasound demonstrates cholelithiasis, coarsened parenchymal echotexture, which can be seen with cirrhosis. No focal liver lesions demonstrated. A 4.1 cm abdominal aortic aneurysm, left pleural effusion and splenomegaly. ASSESSMENT AND PLAN: This is a pleasant 78-year-old male with several medical comorbidities listed above including coronary artery disease, congestive heart failure, aortic abdominal aneurysm, type 2 diabetes, who presented with worsening shortness of breath secondary to congestive heart failure. The GI service has been consulted for evaluation of possible cirrhosis. Cirrhosis: It is quite likely that the patient has cirrhosis based on labs, splenomegaly and prior history of congestive heart failure. I will get hepatitis serologies and autoimmune serologies, rule out common cause of cirrhosis. If he is not immune to hepatitis A or B, we will recommend outpatient hepatitis vaccinations. The patient does not have any complications related to cirrhosis at this time including encephalopathy, ascites or jaundice. He does need variceal screening, but at this time the patient's cardiovascular status will not permit safe endoscopic evaluation. We can address this at another time when he is more stable. I will see the patient in my clinic in 3-4 weeks' time. Thank you for this consult. By: 1720 [id number] Sosa MD /joaquin
[~2018-08-27 16:27] MED LIST changes: +ASPIR 8181 MG PO; +LASIX 20 MG TAB20 MG PO
[2018-08-27 16:28] VITALS: BP 119/70
[2018-08-27 17:09] LABS: ABSOLUTE EOSINOPHILS 0.1 thou/uL (0.0-0.7); ABSOLUTE LYMPHOCYTES 0.3 thou/uL (0.8-5.3); ABSOLUTE MONOCYTES 0.3 thou/uL (0.0-1.2); ABSOLUTE NEUTROPHILS 2.1 thou/uL (1.6-8.1); BASOPHILS 0.5 %; EOSINOPHILS 2.8 %; HEMATOCRIT 32.8 % (42.0-52.0); HEMOGLOBIN 10.6 gm/dL (14.0-18.0); LYMPHOCYTES 11.8 %; MCH 25.3 pg (26.0-34.0); MCHC 32.4 g/dL (28.0-37.0); MONOCYTES 10.8 %; MPV 9.4 fl. (7.2-11.1); NUCLEATED RBCS 0 /100WBC; PLATELET COUNT* 118 thou/uL (150-400); POLYS 74.1 %; RDW-CV 19.5 % (10.5-14.5); WBC 2.9 thou/uL (4.0-11.0)
[2018-08-27 17:22] LABS: CALCIUM 8.6 mg/dL (8.5-10.1); CREATININE 1.8 mg/dL (0.6-1.3); POTASSIUM 4.1 mmol/L (3.5-5.1); TROPONIN-I LEVEL 0.08 ng/mL (<0.06)
[2018-08-27 17:24] LABS: ALBUMIN 3.4 g/dL (3.4-5.0); TOTAL BILIRUBIN 1.1 mg/dL (<0.1-1.0); TOTAL PROTEIN 7.3 g/dL (6.4-8.2)
[2018-08-27 21:20] VITALS: BP 128/88
[2018-08-27 23:00] VITALS: BP 148/87
[2018-08-28] VITALS (9 sets, daily range): BP systolic 94–153; BP diastolic 43–80
--- NOTE | 2018-08-28 08:34 | EKG ---
[place] [address] ELECTROCARDIOGRAM REPORT Name: TAMELA RAMOS Room: [address] ADM IN M.R.#: [id number] Admission: 08/27/18 Attend Phys: Meliton Ryan Discharge: Date of : 39 Report #: [id number] THIS REPORT FOR: //name// [facility] Test Date: 2018-08-27 Test Time: 22:51:02 Pat Name: TAMELA RAMOS Department: Room: [facility] Gender: M Double Bottom Driver: JESSICA : 1940 Requested By: Liliya Kimbrough Order Number: [id number] MD: Gerardo Reddy Measurements Intervals [place] Rate: 90 P: 60 VT: 209 QRS: -76 QRSD: 157 T: 73 QT: 399 QTc: 489 Interpretive Statements Sinus rhythm Possible left atrial enlargement Right bundle branch and left anterior fascicular block Compared to ECG 08/18/2018 05:06:47 no significant changes noted Electronically Signed On 08-28-2018 8:33:52 CDT by Gerardo Reddy [email or web address] <ELECTRONICALLY SIGNED> By: Gerardo Reddy MD, FACC 08/28/18 0833 225 225 Gerardo Reddy MD, FAC /EPI
--- NOTE | 2018-08-28 08:37 | NUR ---
PATIENT ADMITTED TO FLOOR. STATED CHEST PAIN RELIEVED WITH NITRO X2 AND HOME MEDICATIONS. ORIENTED TO CALL LIGHT, BED CONTROLS, AND STAFF. BED ALARM ON. NPO FOR CARDIOLOGY CONSULT. CALL LIGHT WITHIN REACH, ENCOURAGED TO CALL FOR NEEDS.
--- NOTE | 2018-08-28 09:00 | NUR ---
ASSUMED CARE OF PT AT 0730. PT RESTING IN BED. PT A&0X4, DENIES ANY PAIN OR SHORTNESS OF BREATH AT THIS TIME. PT TRACING SR ON THE MANAGER LOAN. ON RA SAT 95%. PT UP SBA TO BATHROOM. CARDIOLOGY CONSULT IN PLACE. PT NPO AT THIS TIME. DENIES ANY CHEST PAIN. PT GOAL FOR TODAY IS REMAIN FREE FROM CHEST PAIN AND CARDIOLOGY CONSULT. AM ASSESSMENT CHARTED. MEDICATIONS PER MAR. PT REPOSITIONS SELF. HOURLY ROUNDING OBSERVED. BED IN LOW POSITION. CALL LIGHT WITHIN REACH. WILL CONTINUE PLAN OF CARE.
--- NOTE | 2018-08-28 15:51 | 2DMMODE ---
[place] [address] 2 D/M-MODE ECHOCARDIOGRAM Name: TAMELA RAMOS Room: [address] IN [facility]#: [id number] Admission: 08/27/18 Attend Phys: Ramon Casiano Discharge: Date of : 38 Date of Service: 08/28/18 1551 Report #: [id number] THIS REPORT FOR: //name// APPROVED REPORT Study performed: 08/28/2018 13:22:29 EXAM: Comprehensive 2D, Doppler, and color-flow Echocardiogram Patient Location: In-Patient Room #: [facility] BSA: 2.05 HR: 83 bpm BP: 134/70 mmHg Other Information Study Quality: Good Indications Dyspnea 2D Dimensions IVSd: 13.96 (7-11mm) LVOT Diam: 20.57 (18-24mm) LVDd: 52.32 mm PWd: 13.01 (7-11mm) Ascending Ao: 29.94 (22-36mm) LVDs: 39.30 (25-40mm) Aortic Root: 31.12 mm Volumes Left Atrial Volume (Systole) LA ESV Index: 29.80 mL/m2 Aortic Valve AoV Peak Steven.: 2.30 m/s AO Peak Gr.: 21.19 mmHg LVOT Max P.09 mmHg AO Mean Gr.: 12.85 mmHg LVOT Mean P.10 mmHg LVOT Max V: 0.72 m/s AO V2 VTI: 51.19 cm LVOT Mean V: 0.49 m/s FOZIA (VTI): 1.07 cm2 LVOT V1 VTI: 16.53 cm Mitral Valve E/A Ratio: 1.46 MV Decel. Time: 155.40 ms MV E Max Steven.: 0.95 m/s MV PHT: 45.06 [place] [address] 2 D/M-MODE ECHOCARDIOGRAM Name: TAMELA RAMOS Room: [address] IN .R.#: [id number] Admission: 08/27/18 Attend Phys: Ramon Casiano Discharge: Date of : 38 Date of Service: 08/28/18 1551 Report #: [id number] MVA (PHT): 4.88 cm2 TDI E/Lateral E': 13.57 E/Medial E': 13.57 Medial E' Steven.: 0.07 m/s Lateral E' Steven.: 0.07 m/s Pulmonary Valve PV Peak Steven.: 0.75 m/s PV Peak Gr.: 2.26 mmHg Tricuspid Valve RAP Estimate: 5.00 mmHg TR Peak Gr.: 35.19 mmHg RVSP: 40.19 mmHg PA Pressure: 40.19 mmHg Left Ventricle The left ventricle is normal size. There is normal LV segmental wall motion. Mild concentric left ventricular hypertrophy. The left ventricular systolic function is normal. LVEF is 50-55%. Moderate diastolic dysfunction is present (pseudonormal filling). Right Ventricle The right ventricle is normal size. The right ventricular systolic function is normal. Atria Left atrium is mildly dilated. The right atrium size is normal. Aortic Valve Aortic valve is moderately calcified. No aortic regurgitation is present. Mild aortic stenosis. Mitral Valve Mild mitral annular calcification. Mitral valve leaflets are mildly thickened. Mild mitral regurgitation. No evidence of mitral valve stenosis. Tricuspid Valve The tricuspid valve is normal in structure. Mild to moderate tricuspid regurgitation. The RVSP is 40-45 mmHg. Pulmonic Valve The pulmonary valve is normal in structure. [place] [address] 2 D/M-MODE ECHOCARDIOGRAM Name: TAMELA RAMOS Room: [address] IN [facility]#: [id number] Admission: 08/27/18 Attend Phys: Ramon Casiano Discharge: Date of : 38 Date of Service: 08/28/18 1551 Report #: [id number] Great Vessels The aortic root is normal in size. IVC is dilated and collapses >50% with inspiration. Pericardium There is no pericardial effusion. <Conclusion> The left ventricle is normal size. Mild concentric left ventricular hypertrophy. The left ventricular systolic function is normal. LVEF is 50-55%. Moderate diastolic dysfunction is present (pseudonormal filling). Left atrium is mildly dilated. Aortic valve is moderately calcified. Mild aortic stenosis. Mild mitral regurgitation. Mild to moderate tricuspid regurgitation. The RVSP is 40-45 mmHg. Mild pulmonic regurgitation. IVC is dilated and collapses >50% with inspiration. <ELECTRONICALLY SIGNED> By: Gerardo Reddy MD, FACC 08/28/18 1551 155 155 Gerardo Reddy MD, FACC /INF
--- NOTE | 2018-08-28 16:08 | NUR ---
Pt is A&O. Resides at home with his son. Known to this CM from previous hospital stays. Pt is normally independent. Pt has a walker and cane that he can use for mobility. Hx of [facility]. Hx of [facility] skilled. Pt's goal is to return home at in. Following.
--- NOTE | 2018-08-28 16:53 | EKG ---
[place] [address] ELECTROCARDIOGRAM REPORT Name: TAMELA RAMOS Room: [address] ADM IN M.R.#: [id number] Admission: 08/27/18 Attend Phys: Meliton Ryan Discharge: Date of : 38 Report #: [id number] THIS REPORT FOR: //name// [facility] ED Test Date: 2018-08-27 Test Time: 16:31:04 Pat Name: TAMELA RAMOS Department: Room: [address] Gender: M Swing Type Lathe Operator: Enrique Mansfield : 1940 Requested By: Ramon Casiano Order Number: [id number] Devan MD: Gerardo Reddy Measurements Intervals [place] Rate: 77 P: 73 DE: 199 QRS: -54 QRSD: 166 T: 79 QT: 450 QTc: 510 Interpretive Statements Sinus rhythm Right bundle branch block Baseline wander in lead(s) I,II,aVR,aVL Compared to ECG 08/18/2018 05:06:47 Left anterior fascicular block no longer present Electronically Signed On 08-28-2018 16:53:45 CDT by Gerardo Reddy [email or web address] <ELECTRONICALLY SIGNED> By: Gerardo Reddy MD, FACC 08/28/18 1653 1631 1631 Gerardo Reddy MD, FACC /EPI
--- NOTE | 2018-08-28 17:39 | NUR ---
I have reviewed the documentation by OSKAR GARCIA from 08/28/18 to 08/28/18 and I concur with it. CHAS, IGOR
--- NOTE | 2018-08-28 18:36 | NUR ---
NO ACUTE CHANGES THROUGHOUT SHIFT. REFER TO CHARTING. PT HAD VISITORS THIS AFTERNOON. CARDIOLOGY HERE TO SEE PT. ORDERS RECEIVED FOR ECHO, 2,000 ML FLUID RESTRICTION, INCREASED IMDUR DOSAGE AND IV LASIX X 1 REFER TO EMAR. PT WORKED WITH PHYSICAL THERAPY TODAY. TOLERATED WELL. PT ON RA/2L NC FOR COMFORT. CONTINUES TO TRACE SR ON THE MAINTENANCE PORTER. PT UP SBA TO BATHROOM. PROGRESSING TOWARDS GOALS. UP TO CHAIR FOR MEALS. MEDICATIONS PER MAR. PT REPOSITIONS SELF. HOURLY ROUNDING OBSERVED. BED IN LOW POSITION. CALL LIGHT WITHIN REACH. WILL CONTINUE PLAN OF CARE.
[2018-08-29] VITALS (8 sets, daily range): BP systolic 88–140; BP diastolic 42–77
[2018-08-29 01:14] LABS: ABSOLUTE EOSINOPHILS 0.1 thou/uL (0.0-0.7); ABSOLUTE LYMPHOCYTES 0.4 thou/uL (0.8-5.3); ABSOLUTE MONOCYTES 0.4 thou/uL (0.0-1.2); ABSOLUTE NEUTROPHILS 2.4 thou/uL (1.6-8.1); BASOPHILS 0.6 %; HEMATOCRIT 28.8 % (42.0-52.0); HEMOGLOBIN 9.4 gm/dL (14.0-18.0); LYMPHOCYTES 11.3 %; MCH 25.6 pg (26.0-34.0); MCHC 32.7 g/dL (28.0-37.0); MCV 78.2 fL (80.0-100.0); MPV 8.6 fl. (7.2-11.1); NUCLEATED RBCS 0 /100WBC; PLATELET COUNT* 109 thou/uL (150-400); POLYS 73.1 %; RBC 3.69 mil/uL (4.50-6.00); RDW-CV 19.2 % (10.5-14.5); WBC 3.2 thou/uL (4.0-11.0)
[2018-08-29 01:48] LABS: CALCIUM 8.3 mg/dL (8.5-10.1); CREATININE 2.1 mg/dL (0.6-1.3); MAGNESIUM 1.8 mg/dL (1.8-2.4); PHOSPHORUS* 3.8 mg/dL (2.5-4.9)
--- NOTE | 2018-08-29 02:24 | NUR ---
ASSUMED CARE OF PT AT 1900. PT REPORTS BEING SOA AND CHEST PAIN. TROPONIN IS 2.7. PT WAS GIVEN 40 MG OF LASIX AND 2 MG OF MORPHINE. PT ALSO HAS HEPARIN ORDERED BUT PT HAS A HISTORY OF AN AAA. AT THIS TIME PT REPORTS BEING COMFORTABLY AFTER THE MORPHINE AND IS LYING IN BED. PT HAS 2 LITERS O2. VITALS REMAIN STABLE. EKG DOES NOT SHOW ANY ST ELEVATION. PT IS SINUS RYTHM ON THE TELEMETRY. PT IS RESTING COMFORTABLY IN BED. RESPIRATIONS ARE EVEN AND NONLABORED. WILL CONTINUE TO MONITOR PT.
--- NOTE | 2018-08-29 13:02 | NUR ---
PT A/O. TELE TRACKING NSR WITH BBB AND PVC'S. ALL VSS ON 2L. PT DENIES CP THIS AM- SOME SOA WITH EXERTION, BUT PT STATES HIS BREATHING IS STARTING TO FEEL IMPROVED. HEPARING GTT INFUSING PER PROTOCOL. EDUCATED ON SAFETY AND PLAN OF CARE. PLEASE SEE ASSESSMENT FOR ADDITIONAL INFORMATION. WILL CONTINUE TO MONITOR
--- NOTE | 2018-08-29 16:44 | EKG ---
[place] [address] ELECTROCARDIOGRAM REPORT Name: TAMELA RAMOS Room: [address] ADM IN M.R.#: [id number] Admission: 08/27/18 Attend Phys: Meliton Ryan Discharge: Date of : 38 Report #: [id number] THIS REPORT FOR: //name// [facility] Test Date: 2018-08-29 Test Time: 00:41:29 Pat Name: TAMELA RAMOS Department: Room: [address] Gender: M Sample Display Preparer: MJ : 1940 Requested By: Ramon Casiano Order Number: [id number] Devan MD: Brian Herbert Measurements Intervals [place] Rate: 85 P: 66 VA: 194 QRS: -72 QRSD: 158 T: 78 QT: 415 QTc: 494 Interpretive Statements Sinus rhythm Probable left atrial enlargement RBBB and LAFB Compared to ECG 08/27/2018 22:51:02 Right bundle-branch block now present Electronically Signed On 08-29-2018 16:44:47 CDT by Brian Herbert [email or web address] <ELECTRONICALLY SIGNED> By: Brian Herbert MD, [facility] 08/29/18 1644 0041 0041 Brian Herbert MD, [facility] /EPI
[2018-08-30] VITALS (7 sets, daily range): BP systolic 98–130; BP diastolic 46–67
--- NOTE | 2018-08-30 01:57 | NUR ---
ASSUMED CARE OF PT AT 1900. PT IS ALERT AND ORIENTED. VSS. NISH. PT DENIED CHEST PAIN AND SOA AT HIS ASSESSMENT AT 0. ABOUT 1999, PT COMPLAINED OF CHEST PAIN. EKG DID NOT SHOW ST ELEVATION. DR JARA NOTIFIED. PT WAS GIVEN IV LASIX, METOPROLOL AND MORPHINE. PT ALSO STARTED ON A NITROPASTE 0.5 IN. PT REPORTS THAT HE NO LONGER HAS CHEST PAIN AFTER THESE DRUGS GIVEN. PT ALSO REMAINS ON HEPARIN GTT. PTT WITHIN NORMAL RANGE. PT IS IN SINUS RYTHM ON THE TELEMETRY. PT IS RESTING COMFORTABLY IN BED. RESPIRATIONS ARE EVEN AND NONLABORED. WILL CONTINUE TO MONITOR PT.
[2018-08-30 08:01] LABS: CALCIUM 8.4 mg/dL (8.5-10.1); CREATININE 1.9 mg/dL (0.6-1.3); POTASSIUM 3.6 mmol/L (3.5-5.1)
[2018-08-30 08:02] LABS: TROPONIN-I LEVEL 1.27 ng/mL (<0.06)
--- NOTE | 2018-08-30 12:01 | NUR ---
MET WITH PT RE: CHF MEDICATION EDUCATION. PT'S SON PRESENT DURING DISCUSSION. MEDICATION INSTRUCTION PRIMARILY REGARDING CARVEDILOL. REVIEWED RATIONALE OF THERAPY AND IMPORTANCE OF COMPLIANCE WITH PRESCRIBED REGIMEN. DISCUSSED POSSIBLE SIDE EFFECTS AND POTENTIAL MANAGEMENT STRATEGIES. PT EXPRESSED UNDERSTANDING OF ISSUES DISCUSSED. LEFT MEDICATION INFORMATION SHEET WITH PATIENT ALONG WITH PHARMACY CONTACT INFORMATION FOR ANY FURTHER QUESTIONS OR ISSUES. THANK YOU.
--- NOTE | 2018-08-30 15:05 | EKG ---
[place] [address] ELECTROCARDIOGRAM REPORT Name: TAMELA RAMOS Room: [address] ADM IN M.R.#: [id number] Admission: 08/27/18 Attend Phys: Meliton Ryan Discharge: Date of : 38 Report #: [id number] THIS REPORT FOR: //name// [facility] Test Date: 2018-08-29 Test Time: 19:54:42 Pat Name: TAMELA RAMOS Department: Room: [address] Gender: M Wall Mirror Department Supervisor: : 1940 Requested By: Ramon Casiano Order Number: [id number] Devan MD: Brian Herbert Measurements Intervals [place] Rate: 76 P: 66 GA: 190 QRS: -51 QRSD: 160 T: 83 QT: 431 QTc: 485 Interpretive Statements Sinus rhythm Probable left atrial enlargement Right bundle branch block Compared to ECG 08/29/2018 00:41:29 Left anterior fascicular block no longer present Electronically Signed On 08-30-2018 15:05:11 CDT by Brain Herbert [email or web address] <ELECTRONICALLY SIGNED> By: Brian Herbert MD, FAC 08/30/18 1505 53 53 Brian Herbert MD, [facility] /EPI
--- NOTE | 2018-08-30 16:15 | NUR ---
PT A/O. TELE TRACKING NSR AND ALL VSS ON 2L. DENIES CP AT START OF SHIFT, BUT LATER EXPERIENCED SOME CHEST TIGHTNESS ASSOCIATED WITH EXERTION AROUND 0930- TIGHTNESS BEGAN TO RESOLVE WITH RESTCARDIOLOGY MUSIC LIBRARIAN AWARE. CONTINUES TO EXPERIENCE DYSPNEA WITH MINIMAL EXERTION. FAMILY AT BEDSIDE FOR MAJORITY OF SHIFT. EDUCATED ON SAFETY AND PLAN OF CARE. PLEASE SEE ASSESSMENT FOR ADDITIONAL INFORMATION. WILL CONTINUE TO MONITOR
[2018-08-31] VITALS (7 sets, daily range): BP systolic 94–118; BP diastolic 45–64
--- NOTE | 2018-08-31 02:16 | NUR ---
ASSUMED CARE OF PT AT 1900. PT IS ALERT AND ORIENTED. VSVal MOCK. PT WAS REPORTING CHEST PAIN AT THE BEGINNING OF THE SHIFT. PT RECIEVED MORPHINE FOR CHEST PAIN. PT ALSO HAS HEPARIN GTT AND NITRO PASTE. PT DENIES CHEST PAIN AT THIS TIME. PT IS IN SINUS RYTHM ON THE TELEMETRY. PT IS RESTING COMFORTABLY IN BED. RESPIRATIONS ARE EVEN AND NONLABORED. WILL CONTINUE TO MONITOR PT.
[2018-08-31 05:07] LABS: ABSOLUTE EOSINOPHILS 0.1 thou/uL (0.0-0.7); ABSOLUTE LYMPHOCYTES 0.6 thou/uL (0.8-5.3); ABSOLUTE MONOCYTES 0.4 thou/uL (0.0-1.2); ABSOLUTE NEUTROPHILS 1.9 thou/uL (1.6-8.1); BASOPHILS 0.8 %; EOSINOPHILS 4.7 %; HEMATOCRIT 27.6 % (42.0-52.0); HEMOGLOBIN 9.1 gm/dL (14.0-18.0); LYMPHOCYTES 18.1 %; MCH 25.7 pg (26.0-34.0); MCHC 32.9 g/dL (28.0-37.0); MCV 78.2 fL (80.0-100.0); MONOCYTES 14.5 %; MPV 9.1 fl. (7.2-11.1); NUCLEATED RBCS 0 /100WBC; PLATELET COUNT* 100 thou/uL (150-400); POLYS 61.9 %; RBC 3.53 mil/uL (4.50-6.00); RDW-CV 19.5 % (10.5-14.5); WBC 3.1 thou/uL (4.0-11.0)
[2018-08-31 05:32] LABS: CALCIUM 8.5 mg/dL (8.5-10.1); POTASSIUM 4.5 mmol/L (3.5-5.1)
--- NOTE | 2018-08-31 06:27 | NUR ---
PTS APTTCAME BACK AT 85.7 THIS AM. HEPARIN TURNED DOWN 175 UNITS PER HR TO 565 UNITS PER HR AT 0600.
--- NOTE | 2018-08-31 10:25 | NUR ---
ASSUMED CARE OF PT AT 0730. PT RESTING IN BED. SON AT BEDSIDE. PT A&0X4, DENIES ANY PAIN OR SHORTNESS OF BREATH AT THIS TIME .PT STATES HE HAD BAD EPISODE OVER NIGHT WITH CHEST PAIN. PT TRACING SR WITH BBB ON THE ELECTRICAL EQUIPMENT ASSEMBLER. ON 2L NC FOR COMFORT-SAT 98%. PT UP SBA TO BATHROOM. VOIDS PER URINAL. HEPARIN GTT INFUSING AT 565 UNITS. REDRAW PTT AT 1200. PT GOAL FOR TODAY IS TO REMAIN FREE FROM CHEST PAIN, INCREASE ACTIVITY AND CARDIOLOGY CONSULT IN PLACE. AM ASSESSMENT CHARTED. MEDICATIONS PER AUG. PT REPOSITIONS SELF. HOURLY ROUNDING OBSERVED. BED IN LOW POSITION. CALL LIGHT WITHIN REACH. WILL CONTINUE PLAN OF CARE.
--- NOTE | 2018-08-31 17:08 | NUR ---
NO ACUTE CHANGES THROUGHOUT SHIFT. REFER TO CHARTING. PT PROGRESSING TOWARDS GOALS. PT DENIED ANY CHEST PAIN THROUGHOUT SHIFT. HEPARIN GTT DISCONTINUED AND NITROPASTE DISCONTINUED PER DR REYNOSO. PT SONS AT BEDSIDE THIS AFTERNOON AND UPDATED ON CURRENT PLAN OF CARE. PT CONTINUES TO TRACE SR WITH BBB ON THE BEATER ROOM HELPER. ON 2L NC SAT UPPER 90'S. DENIES ANY SHORTNESS OF BREATH AT REST. PT UP SBA TO BATHROOM. PT WORKED WITH PT AND OT TODAY. TOLERATED WELL. MEDICATIONS PER AUG, PT REPOSITIONS SELF. HOURLY ROUNDING OBSERVED, BED IN LOW POSITION. CALL LIGHT WITHIN REACH, WILL CONTINUE PLAN OF CARE.
[2018-09-01] VITALS (8 sets, daily range): BP systolic 105–139; BP diastolic 47–64
--- NOTE | 2018-09-01 03:38 | NUR ---
ASSUMED CARE OF PT AT 1900. PT IS ALERT AND OREINTED. VSS. PERRLA. PT COMPLAINED OF CHEST PAIN AT ABOUT 2100. PT RECIEVED MORPHINE FOR CHEST PAIN. PT IS IN SINUS RYTHM ON THE TELEMETRY. PT IS RESTING COMFORTABLY IN BED. RESPIRATIONS ARE EVEN AND NONLABORED. WILL CONTINUE TO MONITOR PT.
[2018-09-01 04:57] LABS: ABSOLUTE EOSINOPHILS 0.1 thou/uL (0.0-0.7); ABSOLUTE LYMPHOCYTES 0.5 thou/uL (0.8-5.3); ABSOLUTE MONOCYTES 0.4 thou/uL (0.0-1.2); ABSOLUTE NEUTROPHILS 1.7 thou/uL (1.6-8.1); BASOPHILS 0.8 %; EOSINOPHILS 5.1 %; HEMATOCRIT 25.7 % (42.0-52.0); HEMOGLOBIN 8.5 gm/dL (14.0-18.0); LYMPHOCYTES 17.2 %; MCHC 33.1 g/dL (28.0-37.0); MCV 78.6 fL (80.0-100.0); MONOCYTES 14.7 %; MPV 9.1 fl. (7.2-11.1); NUCLEATED RBCS 0 /100WBC; PLATELET COUNT* 90 thou/uL (150-400); POLYS 62.2 %; RBC 3.27 mil/uL (4.50-6.00); RDW-CV 19.1 % (10.5-14.5); WBC 2.8 thou/uL (4.0-11.0)
[2018-09-01 05:12] LABS: CALCIUM 8.6 mg/dL (8.5-10.1); POTASSIUM 4.5 mmol/L (3.5-5.1)
[2018-09-01 05:59] LABS: TROPONIN-I LEVEL 0.75 ng/mL (<0.06)
--- NOTE | 2018-09-01 17:17 | NUR ---
PATIENT PROGRESSING TOWARDS GOALS. AOX4. CALM, PLEASANT. AMBULATED IN HALLWAY WITH PT. DENIES CHEST PAIN THROUGHOUT SHIFT. MEDICATION ADJUSTED BY CARDIOLOGY IN ATTEMPT TO CONTROL EVENING CHEST PAIN EVENTS. PATIENT DENIES NEW NEEDS.
[2018-09-02] VITALS: BP 112/59
[2018-09-02 04:00] VITALS: BP 120/60
[2018-09-02 04:43] LABS: HEMATOCRIT 26.5 % (42.0-52.0); HEMOGLOBIN 8.9 gm/dL (14.0-18.0); MCH 26.1 pg (26.0-34.0); MCHC 33.4 g/dL (28.0-37.0); MCV 78.2 fL (80.0-100.0); MPV 9.4 fl. (7.2-11.1); RBC 3.39 mil/uL (4.50-6.00); RDW-CV 19.7 % (10.5-14.5); WBC 3.1 thou/uL (4.0-11.0)
--- NOTE | 2018-09-02 05:33 | NUR ---
ASSUMED CARE OF PT AFTER REPORT AT 1930. PT A&OX4. VSS. PHYSICAL ASSESSMENT COMPLETED AND CHARTED. PT ON O2 AT 3L NC WITH 94% O2 SAT. PT TRACING SR BBB ON TELE. PT REQUESTED FOR STOOL SOFTENER & SLEEPING PILL- DR OLIVIA INFORMED WITH NEW ORDERS. PT DENIES ANY CHEST PAIN OR SOA. HOURLY ROUNDING OBSERVED. CALL LIGHT WITHIN REACH.
[2018-09-02 07:30] VITALS: BP 135/57
[2018-09-02 12:08] VITALS: BP 129/58
--- NOTE | 2018-09-02 15:25 | NUR ---
RED'D REPORT FROM RN, ASSUMED CARE OF PATIENT APPROX 1500. PATIENT'S DTR IN ROOM. PATIENT IS ORIENTED TO SELF AND SITUATION BUT IS VERY FORGETFUL. ASSESSMENT COMPLETED AND IN AGREEMENT WITH AM CHARTED ASSESSMENT. MUCKER COFFERDAM IN PLACE, AV PACED. CALL LIGHT IN REACH. HOURLY ROUNDING FOR SAFETY AND PT NEEDS.
[2018-09-02 15:45] VITALS: BP 137/58
--- NOTE | 2018-09-02 15:58 | NUR ---
REC'D REPORT FROM RN, ASSUMED CARE OF PATIENT APPROX 1500. PATIENT NAPPING UPON FIRST ENCOUNTER. FAMILY AT BS. IN AGREEMENT WITH CHARTED AM ASSESSMENT. FAMILY MEMBER CARETAKER IN PLACE, SR BBB. CALL LIGHT IN REACH. HOURLY ROUNDING FOR SAFETY AND PT NEEDS.
[2018-09-02 20:00] VITALS: BP 118/58
[2018-09-03] VITALS: BP 110/56
[2018-09-03 04:00] VITALS: BP 118/62
--- NOTE | 2018-09-03 05:13 | NUR ---
ASSUMED CARE OF PT AFTER REPORT AT 1930. PT A&OX4. VSS. PHYSICAL ASSESSMENT COMPLETED AND CHARTED. PT COMPLAINED OF SOA. PT ON O2 AT 3L WITH 100% O2 SAT. REASSURANCE GIVEN. REMINDED ON FLUID RESTRICTION. COMMUNICATES UNDERSTANDING. PT RESTED WELL ON BED. DENIES CHEST PAIN. CALL LIGHT WITHIN REACH.
[2018-09-03 05:15] LABS: ABSOLUTE EOSINOPHILS 0.1 thou/uL (0.0-0.7); ABSOLUTE LYMPHOCYTES 0.3 thou/uL (0.8-5.3); ABSOLUTE MONOCYTES 0.4 thou/uL (0.0-1.2); BASOPHILS 0.7 %; CALCIUM 8.4 mg/dL (8.5-10.1); CREATININE 1.9 mg/dL (0.6-1.3); HEMATOCRIT 25.9 % (42.0-52.0); HEMOGLOBIN 8.6 gm/dL (14.0-18.0); LYMPHOCYTES 11.9 %; MCH 26.4 pg (26.0-34.0); MCHC 33.4 g/dL (28.0-37.0); MCV 79.1 fL (80.0-100.0); MONOCYTES 12.3 %; MPV 9.9 fl. (7.2-11.1); NUCLEATED RBCS 0 /100WBC; PLATELET COUNT* 80 thou/uL (150-400); POLYS 71.1 %; POTASSIUM 4.3 mmol/L (3.5-5.1); RBC 3.27 mil/uL (4.50-6.00); RDW-CV 19.9 % (10.5-14.5); WBC 2.9 thou/uL (4.0-11.0)
[2018-09-03 08:00] VITALS: BP 140/64
--- NOTE | 2018-09-03 08:30 | NUR ---
RECEIVED REPORT AND ASSUMED CARE OF PT AT 0730.PT IS A/OX4.SR WITH BBB ON THE MONITOR.ON 2 L NC.IV PATENT AND SALINE LOCKED .IV ANTIBIOTIC GIVEN. ON LEFT FOREARM.EDEMA PRESENT ON BILATERAL LOWER EXTRIMITIES.ONE TIME DOSE LASIX GIVEN PER ORDERS.NO COMPLAINTS OF CHEST PAIN AT THE MOMENT.PT IS POSITIONED AT HIGH FOWELER POSITION TO HELP WITH BREATHING.BRUSING PRESENT IN SOME PARTS OF SKIN.CALL LIGHT AND FALL PRECAUTIONS IN PLACE.WILL CONTINUE TO MONITOR.
[2018-09-03 12:46] VITALS: BP 145/48
--- NOTE | 2018-09-03 13:31 | NUR ---
Nutrition: Pt seen for LOS. Eating lunch during visit, 75-100% of Heart Healthy/CHO count. He stated his usual wt is 180#, no recent wt changes. He did not have a menu - RD provided him with on and explanation. Labs, Hx, RX reviewed. Low nutrition concern.
[2018-09-03 16:24] VITALS: BP 130/46
--- NOTE | 2018-09-03 19:07 | NUR ---
VSS.CARDIAC MONITORING IN PLACE WITH NO CHANGES.PT REMAINS ON 3L O2 NC.PT PROGRESSING TOWARDS GOALS.NO C/O PAIN.IV PATENT AND SALINE LOCKED.HOURLY ROUNDING COMPLETED FOR PT SAFETY.CALL LIGHT AND FALL PRECAUTIONS IN PLACE.WILLL CONTINUE TO MONITOR FOR DURATION OF SHIFT.THIS NURSE REVIEWED ORIENTEE NURSE BRADLEY'S CHARTING AND AM NOTE AND AGREES WITH INFORMATION.PT REQUESTED TO TAKE RENEXA EARLY AND STATES DOCTOR INSTRUCTED HIM TO DO SO.
[2018-09-03 20:00] VITALS: BP 117/46
[2018-09-04] VITALS: BP 98/44
[2018-09-04 04:33] VITALS: BP 121/50
--- NOTE | 2018-09-04 04:52 | NUR ---
ASSUMED CARE OF PT AFTER REPORT AT 1930. PT A&OX4. VSS. PHYSICAL ASSESSMENT COMPLETED AND CHARTED. PT ON O2 AT 2L WITH 100% O2 SAT. PT TRACING SR/1ST DEG/BBB ON TELE. PT COMPLAINED OF RIGHT HIP PAIN- PAIN MEDS GIVEN PER MAR. DENIES CHEST PAIN. CALL LIGHT WITHIN REACH. FALL PRECAUTIONS IN PLACE.
[2018-09-04 05:19] LABS: HEMATOCRIT 26.4 % (42.0-52.0); HEMOGLOBIN 8.6 gm/dL (14.0-18.0); MCHC 32.7 g/dL (28.0-37.0); MCV 79.4 fL (80.0-100.0); MPV 9.6 fl. (7.2-11.1); RBC 3.32 mil/uL (4.50-6.00); RDW-CV 20.3 % (10.5-14.5); WBC 2.8 thou/uL (4.0-11.0)
[2018-09-04 05:49] LABS: ALBUMIN 2.9 g/dL (3.4-5.0); CALCIUM 8.6 mg/dL (8.5-10.1); MAGNESIUM 1.6 mg/dL (1.8-2.4); POTASSIUM 3.9 mmol/L (3.5-5.1); TOTAL BILIRUBIN 1.1 mg/dL (<0.1-1.0); TOTAL PROTEIN 6.1 g/dL (6.4-8.2)
[2018-09-04 08:30] VITALS: BP 134/60
--- NOTE | 2018-09-04 10:00 | NUR ---
RECEIVED REPORT AND ASSUMED CARE OF PT AT 0730.PT IS A/OX4.SR WITH BBB ON THE MONITOR.ON 2 L NC.UP WITH ASSIST.IV PATENT AN SALINE LOCKED. EDEMA ON BILATERAL LOWER EXTIMITIES .PT HAD A EPISODE OF CHEST PAIN.EKG COMPLETED.VITALS SIGNS STABLE.DR NOTIFIED .PT STATED HE THOUGHT THAT IT WAS ANXIETY RELATED,ANXIETY MED GIVEN.PT AMBULATED WITH PT IN HALLWAY .HRLY ROUNDING DONE.WILL CONTINUE TO MONITOR.
--- NOTE | 2018-09-04 11:05 | NUR ---
COMMERCIAL CREDIT SPECIALIST SPOKE TO THE PATIENT TO DISCUSS DISCHARGE PLANNING NEEDS. PATIENT INFORMS THAT HE STILL PLANS TO RETURN HOME AT D/C, BUT HE IS UNSURE AT THIS TIME ABOUT HH. CM WILL REMAIN AVAILABLE TO ASSIST AND FOLLOW NEEDED.
[2018-09-04 12:00] VITALS: BP 124/50
--- NOTE | 2018-09-04 13:22 | NUR ---
Nutrition: follow up note: Consult received for "food preferences." Pt stated he can't have caffeinated coffee d/t heart. RD explained we have de-caf, and pt agreed he would like that. He does not want tea at meals - RD will d/c tea on diet order. We spoke briefly about heart healthy diet, Na, fats. Continue at low risk.
[2018-09-04 16:22] VITALS: BP 124/59
--- NOTE | 2018-09-04 17:10 | EKG ---
[place] [address] ELECTROCARDIOGRAM REPORT Name: TAMELA RAMOS Room: [address] ADM IN M.R.#: [id number] Admission: 08/27/18 Attend Phys: Meliton Ryan Discharge: Date of : 38 Report #: [id number] THIS REPORT FOR: //name// [facility] Test Date: 2018-09-04 Test Time: 12:08:57 Pat Name: TAMELA RAMOS Department: Room: [address] Gender: M Life Sciences Director: [facility] : 1940 Requested By: Angela Larose Order Number: [id number] Devan MD: Gerardo Reddy Measurements Intervals [place] Rate: 70 P: 52 AK: 207 QRS: -67 QRSD: 156 T: 78 QT: 453 QTc: 489 Interpretive Statements Sinus rhythm Probable left atrial enlargement RBBB and LAFB Compared to ECG 08/29/2018 19:54:42 Left anterior fascicular block now present Electronically Signed On 09-04-2018 17:10:38 CDT by Gerardo Reddy [email or web address] <ELECTRONICALLY SIGNED> By: Gerardo Reddy MD, FACC 09/04/18 1710 1208 [id number] Gerardo Reddy MD, FAC /EPI
--- NOTE | 2018-09-04 18:50 | NUR ---
VSS.TRACING SR BBB ON THE MONITOR.PT IS ON 2 L NC.IV PATENT AND SALINE LOCKED.PT IS DOING WELL NO COMPLAINTS OF CHEST PAIN AND SOB .FIRST DOSE OF MAG GIVEN. HOURLY ROUNDING DONE.CALL LIGHT AND FALL PRECAUTIONS IN PLACE FOR SAFETY.
--- NOTE | 2018-09-04 18:58 | NUR ---
THIS NURSE REVIEWED ORIENTEE NURSE BRADLEY'S CHARTING AND NURSING NOTES AND AGREES WITH INFORMATION.WILL CONTINUE TO MONITOR FOR DURATION OF SHIFT.
[2018-09-04 20:00] VITALS: BP 125/56
[2018-09-05] VITALS: BP 121/57
[2018-09-05 04:44] VITALS: BP 138/71
[2018-09-05 05:17] LABS: MCH 25.7 pg (26.0-34.0); MCHC 32.3 g/dL (28.0-37.0); MCV 79.7 fL (80.0-100.0); MPV 9.8 fl. (7.2-11.1); RBC 3.51 mil/uL (4.50-6.00)
[2018-09-05 05:38] LABS: CALCIUM 8.7 mg/dL (8.5-10.1); MAGNESIUM 1.9 mg/dL (1.8-2.4); POTASSIUM 4.7 mmol/L (3.5-5.1)
--- NOTE | 2018-09-05 05:56 | NUR ---
ASSUMED CARE OF PT AFTER REPORT AT 1930. PT A&OX4. VSS. PHYSICAL ASSESSMENT COMPLETED AND CHARTED. PT ON O2 AT 2L NC WITH 100% O2 SAT. PT TRACING SR/1ST DEG/BBB ON TELE. REMINDED PT REGARDING FLUID RESTRICTION, COMMUNICATES UNDERSTANDING. PT DENIES ANY CHEST PAIN OR SOA AT THIS TIME. PT RESTED WELL ON BED. CALL LIGHT WITHIN REACH.
[2018-09-05 08:00] VITALS: BP 135/79
--- NOTE | 2018-09-05 08:00 | NUR ---
RECEIVED REPORT FROM BLAZE AND ASSUMED CARE OF PT @ 7534.PT IS A/O X4,VSS,TRACING SR WITH 1ST BBB ON THE MONITOR.PT REMAINS ON 2L O2 NC. IV PATENT AND SALINE LOCKED.PT IS CALM AND COOPERATIVE WITH NO C/O PAIN AT ITME OF ASSESSMENT.PT LEFT RESTING IN BED WITH CALL LIGHT AND FALL PRECAUTIONS IN PLACE.PT AMBULATED IN HALLWAY WITH PHYSICAL THERAPY.WILL CONTINUE TO MONITOR.
[2018-09-05 11:57] VITALS: BP 126/61
--- NOTE | 2018-09-05 13:18 | NUR ---
Per , Pt should be ready to dc home tomorrow, Pt continues to consider HH at dc. Following.
[2018-09-05 16:03] VITALS: BP 122/65
--- NOTE | 2018-09-05 18:40 | NUR ---
VSS.CARDIAC MONITORING IN PLACE WITH NO CHANGES.PT REMAINS ON 2L O2 NC.PT PROGRESSING TOWARDS GOALS.NO C/O PAIN THIS SHIFT.IV PATENT AND SALINE LOCKED.PT TO BE NPO AT MIDNIGHT FOR ABDOMINAL ULTRASOUND IN THE AM.PT INFORMED OF THE PLAN OF CARE AND COMMUNICATES UNDERSTANDING.PT GIVEN MIRALAX FOR CONSTIPATION.HOURLY ROUNDING COMPLETED FOR PT SAFETY.CALL LIGHT AND FALL PRECAUTIONS IN PLACE.WILL CONTINUE TO MONITOR FOR DURATION OF SHIFT.
[2018-09-05 20:00] VITALS: BP 102/48
[2018-09-06] VITALS: BP 106/56
[2018-09-06 04:00] VITALS: BP 108/56
--- NOTE | 2018-09-06 06:48 | NUR ---
ASSUMED PT CARE AT 1930. ASSESSMENT COMPLETED CHARTED. NO C/O PAIN OR DISCOMFORT. FIXED ON HAVING A BM, GAVE A COUPLE OF DIFFERENT STOOL SOFTENERS. VSS. PT RESTING IN BED AT THIS TIME. UP WITH 1 WITH WALKER. HAD SMALL BM THIS MORNING BUT STILL FEELS FULL. WILL CONTINUE TO MONITOR.
[2018-09-06 08:00] VITALS: BP 97/45
[2018-09-06 12:00] VITALS: BP 102/51
--- NOTE | 2018-09-06 14:24 | NUR ---
ASSUMED PT CARE AT 0700 PT C/O SLIGHT PAIN IN RECTUM DID NOT WANT PAIN MEDS PT DENIES SOA ON 2L/NC, CARDIOLOGY SAW PT WANTS PT WEANED OFF O2 TOOK PT O2 OFF AND EDUCATED PT ON LEAVING OXYGEN OFF PT STATES UNDERSTANDING, PT HAS NOT HAD BOWEL MOVEMENT IN THREE DAYS STATES HAS HARD STOOL " IT FEELS LIKE IT IS STUCK", GAVE PT STOOL SOFTNERS AND ORDERED SUPPOSITORY, PT FAMILY ASKED REGARDING PT HOME MEDICATION WHICH THIS NURSE SPOKE WITH PHARMACY THIS AM WHO STATED IT WAS NOT BROUGHT IN THIS NURSE RELAYED INFORMATION TO FAMILY WHO BECAME UPSET AND HOSTILE AND INSISTED MEDICATION WAS SENT TO PHARMACY THIS NURSE CALLED PHARMACY AGAIN WHO MAINTAINED MEDICATION WAS NOT DOWN THERE, PHARMACY CALLED BACK STATES THEY FOUND PT HOME MEDICATION WHICH THIS NURSE GAVE, PT IS SR BBB ON THE MONITOR, PT IS A FALL RISK BED ALARM IS ON PT FAMILY TURNING OFF BED ALARM EDUCATED TO NOT GET PT UP WITHOUT STAFF ASSISTANCE, PT C/O PAIN AND DIFFICULTY URINATING PAGED PHYSICIAN RELAYED ULTRASOUND RESULTS AND PT C/O UNABLE TO URINATE OBTAINED ORDER TO BLADDER SCAN AND STRAIGHT CATH ABOVE 200 PT BLADDER SCANNED RESIDUAL ABOVE 200 THIS NURSE STRAIGHT CATH PT WHO STATES FEELS RELIEF OBTAINED ORDER FOR ENEMA, GAVE PT PAIN MEDS REASSESSED PT STATES HAS SOME PAIN RELIEF, WILL CONTINUE TO MONITOR
[2018-09-06 15:11] LABS: HEPATITIS B SURFACE AG Negative (Negative)
[2018-09-06 16:00] VITALS: BP 138/66
[2018-09-06 20:00] VITALS: BP 103/37
[2018-09-07] VITALS (8 sets, daily range): BP systolic 94–116; BP diastolic 41–70
[2018-09-07 05:10] LABS: HEMATOCRIT 25.9 % (42.0-52.0); HEMOGLOBIN 8.7 gm/dL (14.0-18.0); MCH 26.7 pg (26.0-34.0); MCHC 33.5 g/dL (28.0-37.0); MCV 79.7 fL (80.0-100.0); MPV 9.9 fl. (7.2-11.1); RBC 3.25 mil/uL (4.50-6.00); RDW-CV 22.3 % (10.5-14.5); WBC 5.2 thou/uL (4.0-11.0)
[2018-09-07 05:24] LABS: CALCIUM 8.7 mg/dL (8.5-10.1); CREATININE 2.2 mg/dL (0.6-1.3); POTASSIUM 5.5 mmol/L (3.5-5.1)
--- NOTE | 2018-09-07 07:38 | NUR ---
ASSUMED PT CARE AT 1930. ASSESSMENT COMPLETED CHARTED. NO C/O PAIN OR DISCOMFORT. ABLE TO MAKE NEEDS KNOWN. PT RESTING IN BED ALL NIGHT. HAS SOME RETENTION ISSUES AND HAS DARK TEA COLORED URINE. UP WITH SBA AND WALKER. WILL CONTINUE TO MONITOR.
--- NOTE | 2018-09-07 08:49 | CON ---
[address] [address] CONSULTATION Name: TAMELA RAMOS Room: [address] IN .R.#: [id number] Admission: 08/27/18 Attend Phys: Meliton Ryan Discharge: Date of : 38 Report #: [id number] THIS REPORT FOR: //name// CC: Daljit Casiano DATE OF SERVICE: 09/05/2018 REASON FOR CONSULTATION: Pancytopenia. SUBJECTIVE: A 78-year-old male who has been admitted back on 08/28 because of acute respiratory failure. The patient was diagnosed with non-STEMI, status post cardiac catheterization with 1 stent placement on 08/16, seen by . He had progressive shortness of breath since the day he was discharged. The patient has been having left shoulder pain. No exacerbating or alleviating factors. The shortness of breath was more with exertion. The patient was evaluated today because of her pancytopenia. I reviewed his prior labs back to 2013. The patient continues to have mild leukopenia. His hemoglobin also ranged between 10 and 9, platelet count has been also bit below 100 back to 2013. The patient denies any known liver disease or receiving prior chemotherapy or alcoholism. The patient reported that 15 years ago, he had bone marrow biopsy and he was told it was fine. REVIEW OF SYSTEMS: All systems reviewed. It was negative except the above. PAST MEDICAL HISTORY: Coronary artery disease, hypertension, diabetes mellitus, congestive heart failure, AAA, chronic kidney disease. MEDICATIONS: Per admission list. ALLERGIES: LISINOPRIL. FAMILY HISTORY: Positive for coronary artery disease. SOCIAL HISTORY: He is an ex-smoker. No alcohol abuse or drug abuse. PHYSICAL EXAMINATION: VITAL SIGNS: Today, temperature is 36.6, pulse 80, respirations 17, blood pressure is 122/65. SpO2 was 100% on 2 L. GENERAL: The patient was lying in bed. He was not in acute distress. LUNGS: Clear to auscultations bilaterally. HEART: Regular rate and rhythm. S1, S2 within normal limits. ABDOMEN: Soft, nontender, nondistended, bowel sounds positive. EXTREMITIES: No edema, no cyanosis, no clubbing. LABORATORY DATA: Most recent CBC: WBC 3.0, hemoglobin is 9.0, MCV 79.7, [place] [address] CONSULTATION Name: TAMELA RAMOS Room: [address]#: [id number] Admission: 08/27/18 Attend Phys: Meliton Ryan Discharge: Date of : 38 Report #: [id number] platelets 87. Differential within normal range except for very mild lymphopenia. Chemistry: Creatinine is 2.0. Sodium is 137, B12 is 567, folate is 46.9. IMAGING: Current chest x-ray showed small pleural effusion, slightly increased on the left compared to the prior, bibasilar atelectasis. I reviewed the prior CT scan of the chest, which was CT angiogram, which was done on 08/16, which showed that the patient had faint lesion with the lateral aspect of the liver, suggests a small cyst or hemangioma. There is also borderline prominent spleen, 13.1. ASSESSMENT AND PLAN: A 78-year-old male who is being evaluated because of chronic pancytopenia. The patient had mild degree of microcytosis. His iron studies were done without the ferritin; however, his iron was low with low saturation and TIBC within normal range. We will wait for the ferritin. The patient did not have any prior chemotherapy or radiation therapy. He does not have any symptoms of liver cirrhosis. We will obtain workup including peripheral blood smear, flow cytometry, acute hepatitis panel, and LDH and also we will obtain ultrasound of the liver to rule out any possibilities of cirrhosis. We will follow the patient during hospitalization. <ELECTRONICALLY SIGNED> By: Delon Hussein MD 09/07/18 0849 1726 [id number] Hussein MD /nt
--- NOTE | 2018-09-07 15:27 | NUR ---
RECOATER SPOKE TO THE PATIENT AND HIS SON TO DISCUSS DISCHARGE PLANNING NEEDS. BOTH ARE UNDECIDED TO WHETHER OR NOT THE PATIENT WILL GO TO SNF AT D/C. PATIENT REQUEST TIME TO DISCUSS WITH SON. PATIENT'S SON INFORMS THAT HE NEEDS TIEM TO DISCUSS THIS WITH HIS OTHER BROTHER. D/C SALES PROMOTION DIRECTOR INFORMED BOTH THE PATIENT AND THE SON OF THE IMPORTANCE OF MAKING A DECISION TODAY THE PATIENT IS LIKELY TO BE DISCHARGED TOMORROW. CM WILL REMAIN AVAILABLE TO ASSIST AND FOLLOW NEEDED.
--- NOTE | 2018-09-07 19:35 | NUR ---
ASSUMED PT CARE AT 0700 PT IS ALERT AND ORIENTED X 4 PT DENIES PAIN OR SOA ON 1L/NC, PT IS UP WITH ASSIST X 1 WITH WALKER PT IS A FALL RISK BED AND CHAIR ALARMS ON, PT WORKED WITH PHYSICIAL THERAPY UP IN CHAIR PT AROUND 1500 BLOO PRESSURE LOWER PT C/O LIGHTHEADNESS PT BACK IN BED REASSESSED PT WHO STATES NO LONER LIGHTHEADED AND PT DENIES DIZZINESS HELP B/P MEDICATION THIS EVENING PER PT REQUEST, PT IS SR BBB ON THE MONITOR, PT PROGRESSING TOWARDS GOALS, WILL CONTINUE TO MONITOR
[2018-09-08] VITALS: BP 102/50
[2018-09-08 04:00] VITALS: BP 98/52
[2018-09-08 05:09] LABS: HEMATOCRIT 26.6 % (42.0-52.0); HEMOGLOBIN 8.8 gm/dL (14.0-18.0); MCH 26.1 pg (26.0-34.0); MCHC 32.9 g/dL (28.0-37.0); MCV 79.5 fL (80.0-100.0); MPV 10.4 fl. (7.2-11.1); RBC 3.35 mil/uL (4.50-6.00); RDW-CV 21.7 % (10.5-14.5)
[2018-09-08 05:28] LABS: CALCIUM 8.2 mg/dL (8.5-10.1); CREATININE 2.6 mg/dL (0.6-1.3); MAGNESIUM 3.3 mg/dL (1.8-2.4); POTASSIUM 5.8 mmol/L (3.5-5.1); TOTAL BILIRUBIN 0.8 mg/dL (<0.1-1.0); TOTAL PROTEIN 6.1 g/dL (6.4-8.2)
--- NOTE | 2018-09-08 05:38 | NUR ---
ASSUMED CARE OF PT AFTER REPORT AT 1930. PT A&OX4. VSS. PHYSICAL ASSESSMENT COMPLETED AND CHARTED. PT ON O2 AT 1L NC WITH 100% O2 SAT. PT TRACING SR/1ST DEG/BBB ON TELE. REMINDED PT REGARDING FLUID RESTRICTION. COMMUNICATES UNDERSTANDING. PT DENIES ANY PAIN OR SOA AT THIS TIME. PT RESTED WELL ON BED. CALL LIGHT WITHIN REACH.
[2018-09-08 08:00] VITALS: BP 108/56
[2018-09-08 12:02] VITALS: BP 110/56
--- NOTE | 2018-09-08 14:29 | NUR ---
PT A/O. TELE TRACKING NSR WITH FIRST DEG AVB AND BBB, VSS ON 1-2L. PT REMAINS SOA WITH EXERTION, DENIES CP. TEA COLORED URINE- PVR 63CC. EDUCATED ON SAFETY AND PLAN OF CARE. PLEASE SEE ASSESSMENT FOR ADDITIONAL INFORMATION. WILL CONTINUE TO MONITOR
[2018-09-08 16:54] VITALS: BP 111/49
[2018-09-08 19:15] LABS: URINE BILIRUBIN NEGATIVE (Negative); URINE BLOOD NEGATIVE (Negative); URINE CLARITY CLEAR; URINE COLOR YELLOW; URINE GLUCOSE-RANDOM NEGATIVE (Negative); URINE KETONES NEGATIVE (Negative); URINE LEUKOCYTES-REFLEX NEGATIVE (Negative); URINE NITRITE-REFLEX NEGATIVE (Negative); URINE PROTEIN NEGATIVE (Negative); URINE SPECIFIC GRAVITY >= 1.030 (1.005-1.030); URINE UROBILINOGEN 0.2 E.U./dl (0.2-1.0)
[2018-09-08 20:00] VITALS: BP 117/43
[2018-09-08 20:08] LABS: INR 1.2; PROTIME 12.3 Seconds (9.20-11.50)
[2018-09-09] VITALS: BP 98/42
[2018-09-09 04:00] VITALS: BP 116/57
[2018-09-09 04:47] LABS: CALCIUM 8.3 mg/dL (8.5-10.1); CREATININE 2.5 mg/dL (0.6-1.3); MAGNESIUM 3.3 mg/dL (1.8-2.4)
[2018-09-09 04:57] LABS: POTASSIUM 4.8 mmol/L (3.5-5.1)
--- NOTE | 2018-09-09 05:26 | NUR ---
ASSUMED CARE OF PT AFTER REPORT AT 1930. PT A&OX4. VSS. PHYSICAL ASSESSMENT COMPLETED AND CHARTED. PT ON O2 AT 1L NC WITH 100% O2 SAT. PT TRACING SR/ 1STDEG/BBB ON TELE. PT DENIES ANY PAIN OR SOA. PRESSURE WOUND ON SACRAL AREA CLEANED & PAT DRY. COVERED WITH MEPILEX. PHOTOGRAPH TAKEN. PT RESTED WELL ON BED. CALL LIGHT WITHIN REACH.
[2018-09-09 08:00] VITALS: BP 127/63
[2018-09-09 11:27] VITALS: BP 128/64
[2018-09-09 15:08] LABS: KAPPA FREE LIGHT CHAINS 19.8 mg/L (3.3-19.4); LAMBDA FREE LIGHT CHAINS 18.5 mg/L (5.7-26.3)
[2018-09-09 16:04] VITALS: BP 122/46
--- NOTE | 2018-09-09 18:39 | NUR ---
RECEIVED REPORT FROM BLAZE LANDRY. ASSUMED CARE OF PT AROUND 0730. PT A&O X4. VSS. CHIMNEY CONSTRUCTION SUPERVISOR IN PLACE TRACING SR WITH 1ST DEGREE AND BBB. AM ASSESSMENT AND VITALS COMPLETED CHARTED. IV TO LEFT FA INTACT AND SALINE LOCKED. FAMILY AT BEDSIDE MOST OF SHIFT. PT TEARFUL TODAY OVER NEW DIAGNOSIS OF CIRRHOSIS. PT HAS DENIED PAIN OR DISCOMFORT. TOLERATING DIET. UP WITH ASSIST X1 TO BEDSIDE COMMODE TO HAVE BM. VOIDING PER URINAL. DRESSING INTACT TO SACRAL WOUND. PT CURRENTLY RESTING IN BED. FALL PRECAUTIONS IN PLACE. CALL LIGHT IS WIHTIN REACH. HOURLY ROUNDING PERFORMED. PT TURNED Q2HRS.
[2018-09-09 20:00] VITALS: BP 119/48
[2018-09-10] VITALS: BP 131/66
[2018-09-10 04:00] VITALS: BP 127/61
--- NOTE | 2018-09-10 05:44 | NUR ---
ASSUMED CARE OF PT AFTER REPORT AT 1930. PT A&OX4. VSS. PHYSICAL ASSESMENT COMPLETED AND CHARTED. PT ON RA WITH 96% O2 SAT. PT TRACING SR/1STDEG/BBB ON TELE. PT UP WITH 1 ASSIST TO RESTROOM. PT DENIES ANYH PAIN OR SOA. PT TURNED TO SIDES. REMINDED PT ON FLUID RESTRICTION. COMMUNICATES UNDERSTANDING. HOURLY ROUNDING OBSERVED. CALL LIGHT WITHIN REACH.
[2018-09-10 05:47] LABS: CALCIUM 7.9 mg/dL (8.5-10.1); CREATININE 2.2 mg/dL (0.6-1.3); MAGNESIUM 2.9 mg/dL (1.8-2.4); POTASSIUM 4.6 mmol/L (3.5-5.1)
[2018-09-10 09:30] VITALS: BP 123/58
--- NOTE | 2018-09-10 10:13 | NUR ---
BLOCKER AND POLISHER GOLD WHEEL SPOKE TO YUNG WITH V ADMISSIONS AND SHE INFORMS THAT THE FACILITY IS ABLE TO ACCEPT THE PATIENT TODAY. RN IN-CHARGE OF THE PATIENT INFORMS THAT THE PATIENT WILL NEED TO BE CLEARED BY NEPHROLOGY AND G.I. PRIOR TO D/C SO THE PATIENT MAY NOT D/C TODAY. CM WILL REMAIN AVAILABLE TO ASSIST AND FOLLOW NEEDED.
[2018-09-10] MEDS ORDERED: PREDNISONE 20 M20 MG PO ×2 (10:25)
[2018-09-10] MEDS ORDERED: ALPRAZOLAM 0.0.25 M1 PO ×2 (10:25)
[2018-09-10] MEDS ORDERED: SPIRONOLACTONE25 M1 PO ×2 (10:25)
[2018-09-10] MEDS ORDERED: PULMICORT0.5 MG/2 M INH ×2 (10:25)
[2018-09-10] MEDS ORDERED: COREG6.25 MG PO ×2 (10:25)
[2018-09-10] MEDS ORDERED: LACTULOSE10 GM/152 PO ×2 (10:25)
[2018-09-10] MEDS ORDERED: LASIX 40 MG TAB40 M1 PO ×2 (10:25)
[2018-09-10] MEDS ORDERED: IPRAT-ALBUT 0.5-3 ML INH ×2 (10:26)
[2018-09-10] MEDS ORDERED: K-DUR10 MEQ PO ×2 (14:20)
[2018-09-10] MEDS ORDERED: CARVEDILOL25 MG PO ×2 (14:20)
--- NOTE | 2018-09-10 14:56 | NUR ---
[facility] unable to accept Pt for skilled, spoke with Pt and son, faxed referral to [facility], awaiting decision to accept. Pt has dc orders,
--- NOTE | 2018-09-10 15:59 | NUR ---
WOUND NURSE: PATIENT SEEN TO ADDRESS PARTIAL THICKNESS SKIN LESON ON THE SACRAL- COCCYGEAL AREA PRSENTS WITH SCANT SEROUS DRAINAGE AND SUPFICIAL EROSION. THERE IS NO PERIWOUND REDNESS, WARMTH, OR INDURATION. CLEANSED WITH SOAP AND WATER, RINSED WITH WATER,THEN PATTED DRY. APPLIED SKIN PREP TO PERIWOUND, THEN COVERED WITH EXUDERM UNDER SURESITE DRESSING. THIS WAS TOLERATED WELL BY THE PATIENT. EXPLAINED TO PATIENT MEASURES TO PROMOTE HEALING AND PREVENT FURTHER COMPLICATIONS, I.E., NUTRITIONAL NEEDS, MEASURES TO OFFLOAD AREA TO AVOID SHEARING AND PRESSURE. PATIENT STATED HE UNDERSTOOD.
--- NOTE | 2018-09-10 16:00 | NUR ---
Pt discharging to [facility] skilled today, facility to shrimp picker at 5pm. Faxed dc orders. Chart copied. Nurse report number provided [phone]. Son in room and aware of disposition.
--- NOTE | 2018-09-10 16:21 | NUR ---
ASSUMED PT CARE AT 0700 PT IS ALERT AND ORIENTED X 4 PT DENIES PAIN OR SOA ON RA, PT IS UP WITH ASSIST X 1 PT IS A FALL RISK BED ALARM IS ON, PT IS SR 1ST BBB ON THE MONITOR, PT IS CLEARED FOR DISCAHRGE PT DISCHARGING TO FACILTIY, WILL CONTINUE TO MONITOR
[2018-09-10 17:10] LABS: GLOBULIN TOTAL 2.7 g/dL (2.2-3.9); M-SPIKE Not Observed g/dL (Not Observed)
[2018-09-10 17:32] VITALS: BP 123/58
== END 2018-09-10 17:55 | DRG 177 ==
LOC: M.ERS 16:27 → M.TBA-ER 19:37 → M.2W 19:37
PROVIDERS: Family Medicine; Internal Medicine; Nurse Practitioner Family; Registered Nurse; ADMIT Internal Medicine
DX: J15.6 Pneumonia due to other Gram-negative bacteria (principal); I21.4 Non-ST elevation (NSTEMI) myocardial infarction; I50.33 Acute on chronic diastolic (congestive) heart failure; J96.01 Acute respiratory failure with hypoxia; N17.0 Acute kidney failure with tubular necrosis; R65.10 Systemic inflammatory response syndrome (SIRS) of non-infectious origin without acute organ dysfunction; I13.0 Hypertensive heart and chronic kidney disease with heart failure and stage 1 through stage 4 chronic kidney disease, or unspecified chronic kidney disease; K76.6 Portal hypertension; D61.818 Other pancytopenia; J44.0 Chronic obstructive pulmonary disease with (acute) lower respiratory infection; I25.110 Atherosclerotic heart disease of native coronary artery with unstable angina pectoris; D50.9 Iron deficiency anemia, unspecified; I71.4 Abdominal aortic aneurysm, without rupture; E78.5 Hyperlipidemia, unspecified; E11.649 Type 2 diabetes mellitus with hypoglycemia without coma; E11.22 Type 2 diabetes mellitus with diabetic chronic kidney disease; N18.3 Chronic kidney disease, stage 3 (moderate); K74.60 Unspecified cirrhosis of liver; K59.00 Constipation, unspecified; I65.29 Occlusion and stenosis of unspecified carotid artery; Z88.8 Allergy status to other drugs, medicaments and biological substances; Z95.5 Presence of coronary angioplasty implant and graft; Z79.899 Other long term (current) drug therapy; Z79.1 Long term (current) use of non-steroidal anti-inflammatories (NSAID); Z79.4 Long term (current) use of insulin; Z79.82 Long term (current) use of aspirin; Z87.891 Personal history of nicotine dependence